=== PATIENT | female | born 1975 | race Caucasian/White ===

== ENCOUNTER 2016-12-09 12:04 | Emergency (ER) | payer MEDICAID ==
[~2016-12-09] VITALS: Ht 154.9 cm; Wt 127.5 kg
[~2016-12-09 12:04] MED LIST: CEPH-443 PO; DICY10CA60 PO; DOCU-144 PO; FER325 PO; HYDR-906 PO; IBUP400T22 PO; MEDR10TA50 PO; ONDA4TAB14 PO
[2016-12-09 12:32] VITALS: Ht 154.9 cm; Wt 127.5 kg
[2016-12-09] MEDS ORDERED: ONDANSETRON 4 MG INJ IM STA (14:34)
[2016-12-09] MEDS ORDERED: SOD CHLORIDE 0.9% 1,000 ML IV STA (14:35)
[2016-12-09] MEDS ORDERED: ONDANSETRON 4 MG INJ IV STA (14:35)
[2016-12-09] MEDS ORDERED: OXYCODONE/ACETAMINOPHEN (5/325) TAB PO ONE (15:00)
[2016-12-09 15:01] LABS: ADD SCAN DIFF NO
[2016-12-09 15:06] LABS: ADD UMIC YES; URINE BILIRUBIN (Dip) NEGATIVE (NEGATIVE); URINE BLOOD (Dip) NEGATIVE (NEGATIVE); URINE COLOR LT. YELLOW (YELLOW); URINE GLUCOSE (Dip) NEGATIVE (NEGATIVE); URINE KETONES (Dip) NEGATIVE (NEGATIVE); URINE LEUKOCYTE ESTERASE (Dip) 1+ (NEGATIVE); URINE NITRITE (Dip) NEGATIVE (NEGATIVE); URINE TOTAL PROTEIN (Dip) NEGATIVE (NEGATIVE); URINE UROBILINOGEN (Dip) 0.2 E.U./dL (0.1-1.0)
[2016-12-09 15:09] LABS: BASOPHIL # 0.1 10^3/ul (0.0-0.1); BASOPHILS % 1.2 % (0.0-2.0); EOSINOPHILS # 0.2 10^3/ul (0.0-0.5); EOSINOPHILS % 3.1 % (0.0-7.0); HEMATOCRIT 33.9 % (37.0-47.0); HEMOGLOBIN 10.8 g/dl (12.0-16.0); LYMPHOCYTES # 1.5 10^3/ul (0.8-2.9); LYMPHOCYTES % 25.1 % (15.0-51.0); MEAN CORPUSCULAR HEMOGLOBIN 27.8 pg (29.0-33.0); MEAN CORPUSCULAR HGB CONC 31.9 g/dl (32.0-37.0); MEAN CORPUSCULAR VOLUME 87.1 fl (82.0-101.0); MEAN PLATELET VOLUME 10.5 fl (7.4-10.4); MONOCYTE # 0.4 10^3/ul (0.3-0.9); MONOCYTES % 6.6 % (0.0-11.0); NEUTROPHIL # 3.9 10^3/ul (1.6-7.5); NEUTROPHILS % 63.8 % (39.0-77.0); PLATELET COUNT 319 10^3/UL (140-415); RED BLOOD COUNT 3.89 10^6/ul (4.20-5.40); RED CELL DISTRIBUTION WIDTH 15.9 % (11.5-14.5); WHITE BLOOD COUNT 6.1 10^3/ul (4.8-10.8)
[2016-12-09 15:17] LABS: POTASSIUM 3.8 mmol/L (3.5-5.1)
[2016-12-09 15:19] LABS: CREATININE 0.53 mg/dl (0.44-1.00); URINE RBCS NONE SEEN /HPF (0)
[2016-12-09 15:20] LABS: BACTERIA,URINE MODERATE; CALCIUM 8.5 mg/dl (8.4-10.2); SQUAMOUS EPITHELIAL CELL,UR MANY
[2016-12-09] MEDS ORDERED: CEFTRIAXONE 1 GM/50 ML (PMX) 50 ML IVPB ONE (15:30)
[2016-12-09] MEDS ORDERED: CEPH-443 PO (15:34)
[2016-12-09] MEDS ORDERED: IBUP-1542 PO (15:34)
--- NOTE | 2016-12-09 16:05 | ERD ---
ER Documentation Chief Complaint Date/Time DATE: 12/09/16 TIME: 15:57 Chief Complaint HEADACHE AND DIZZINESS X 3 DAYS HPI 41-year-old woman complains of 3 days of weakness, dizziness, headache. She denies loss of consciousness, no fevers or chills, no dysuria or hematuria, no back pain, no complaints of cough, no chest pain or shortness of breath, no sore throat. Patient denies recent travel or antibiotic use. ROS All systems reviewed and are negative except as per history of present illness. Medications Home Meds Active Scripts Ibuprofen* (Ibuprofen*) 600 Mg Tablet, 600 MG PO Q8 for PAIN AND/OR INFLAMMATION , #30 TAB Prov:ELISA ERVIN MD 12/09/16 Cephalexin* (Keflex*) 500 Mg Capsule, 500 MG PO TID for 7 Days, CAP Prov:ELISA ERVIN MD 12/09/16 Dicyclomine Hcl* (Bentyl*) 10 Mg Capsule, 10 MG PO QID, #30 CAP Prov:IHSAN BRITO PA-C 08/21/16 Ondansetron (Ondansetron Odt) 4 Mg Tab.rapdis, 4 MG PO Q6H Y for NAUSEA AND/OR VOMITING, #10 TAB Prov:IHSAN BRITO PA-C 08/21/16 Cephalexin* (Keflex*) 500 Mg Capsule, 500 MG PO QID for 7 Days, CAP Prov:IHSAN BRITO PA-C 08/21/16 Ibuprofen* (Motrin*) 400 Mg Tab, 400 MG PO Q6, #30 TAB Prov:JENN ROBERTSON PA-C 07/30/16 Medroxyprogesterone Acetate* (Medroxyprogesterone Acetate*) 10 Mg Tablet, 10 MG PO DAILY for 6 Days, TAB Prov:GAMBINOCARLOSA V. CASE PACKER AND SEALER 06/24/16 Hydrocodone/Acetaminophen ([place] 5-325 Tablet) 1 Each Tablet, 1 EACH PO Q6, #30 TAB Prov:GAMBINO,ILEANA V. CASE PACKER AND SEALER 06/24/16 Docusate Sodium* (Colace*) 100 Mg Capsule, 100 MG PO BID, #60 CAP Prov:GAMBINO,ILEANA V. CASE PACKER AND SEALER 06/23/16 Ferrous Sulfate* (Ferrous Sulfate*) 325 Mg Tabec, 325 MG PO TID for 30 Days, TAB Prov:GAMBINOCARLOS ROSADOA V. RUTHANN 06/23/16 Allergies Allergies: Coded Allergies: No Known Allergy (Verified , 06/21/16) PMhx/Soc None Medical and Surgical Hx: pt denies Surgical Hx History of Surgery: No Anesthesia Reaction: No Hx Neurological Disorder: No Hx Respiratory Disorders: No Hx Cardiac Disorders: No Hx Psychiatric Problems: No Hx Miscellaneous Medical Probl: Yes (anemia) Hx Alcohol Use: No Hx Substance Use: No Hx Tobacco Use: No FmHx Family History: No diabetes Physical Exam Vitals Vital Signs Date Time Temp Pulse Resp B/P Pulse Ox O2 Delivery O2 Flow Rate FiO2 12/09/16 12:32 98.7 74 19 97/50 99 Physical Exam GENERAL: Well-developed, well-nourished, well-hydrated, in no apparent distress , looks nontoxic in appearance HEENT: Moist mucous membranes, pink conjunctiva, no cervical spine tenderness or step-off deformities, no goiter, no jaundice or icterus, extraocular movements intact without pain. No submandibular induration, and no pharyngeal erythema NEURO: Alert and oriented 3, cranial nerves II through XII intact bilaterally, pupils equal round reactive to light, no focal deficits or facial asymmetry, sensation intact distally Strength 5/5 in upper and lower extremities bilaterally CARDIAC: Regular rate and rhythm, no murmurs rubs or gallops LUNGS: Clear bilaterally no wheezing crackles or stridor ABDOMEN: Soft nontender, no guarding, no rigidity, no rebound, no psoas sign no obturator sign. Normoactive bowel sounds SKIN: Warm and dry to touch, no abrasions, contusions, or hematomas, no lacerations, no ecchymosis, no target lesions, and without ulcers EXTREMITIES: No clubbing cyanosis or edema, calves are bilaterally symmetrical, no Homans sign, no popliteal cord sign. Distal pulses equal and bilateral PSYCH: Normal affect without agitation or irritability Result Diagram: 12/09/16 1450 12/09/16 1450 Results 24 hrs Laboratory Tests Test 12/09/16 14:50 Anion Gap 17 Basophils # 0.110^3/ul Basophils % 1.2% Blood Urea Nitrogen 9mg/dl Calcium Level 8.5mg/dl Carbon Dioxide Level 25mmol/L Chloride Level 102mmol/L Creatinine 0.53mg/dl Eosinophils # 0.210^3/ul Eosinophils % 3.1% Glucose Level 94mg/dl Hematocrit 33.9% Hemoglobin 10.8g/dl Lymphocytes # 1.510^3/ul Lymphocytes % 25.1% Mean Corpuscular Hemoglobin 27.8pg Mean Corpuscular Hemoglobin Concent 31.9g/dl Mean Corpuscular Volume 87.1fl Mean Platelet Volume 10.5fl Monocytes # 0.410^3/ul Monocytes % 6.6% Neutrophils # 3.910^3/ul Neutrophils % 63.8% Nucleated Red Blood Cells # 0.010^3/ul Nucleated Red Blood Cells % 0.0/100WBC Platelet Count 47167^3/UL Potassium Level 3.8mmol/L Red Blood Count 3.8910^6/ul Red Cell Distribution Width 15.9% Serum HCG, Qualitative NEGATIVE Sodium Level 140mmol/L Urine Bacteria MODERATE Urine Bilirubin NEGATIVE Urine Clarity CLOUDY Urine Color LT. YELLOW Urine Glucose NEGATIVE% Urine Hemoglobin NEGATIVE Urine Ketones NEGATIVE Urine Leukocyte Esterase 1+ Urine Microscopic RBC NONE SEEN/HPF Urine Microscopic WBC 10-25/HPF Urine Nitrite NEGATIVE Urine Specific Tyler <=1.005 Urine Squamous Epithelial Cells MANY Urine Total Protein NEGATIVE Urine Urobilinogen 0.2 E.U./dL Urine pH 5.5 White Blood Count 6.110^3/ul Current Medications Medications (Trade) Dose Ordered Sig/Calvin Route PRN Reason Start Time Stop Time Status Last Admin Dose Admin Ondansetron HCl (Zofran Inj) 4 mg ONCE STAT IM 12/09/16 14:34 12/09/16 14:37 DC Oxycodone/ Acetaminophen 1 tab 1 tab ONCE ONCE PO 12/09/16 15:00 12/09/16 15:01 DC 12/09/16 15:05 Sodium Chloride (NS) 1,000 ml @ 1,000 mls/hr Q1H STAT IV 12/09/16 14:35 12/09/16 15:34 DC 12/09/16 15:06 Ondansetron HCl 4 mg 4 mg ONCE STAT IV 12/09/16 14:35 12/09/16 14:38 DC 12/09/16 15:05 Ceftriaxone Sodium (Rocephin) 50 ml @ 100 mls/hr ONCE ONCE IVPB 12/09/16 15:30 12/09/16 15:59 Procedures/MDM IV line was established patient was placed on director of cardiac cath lab rhythm strip revealed a sinus rhythm at about 80 bpm with upright P and T waves. Patient was afebrile. I administered 1 L normal saline intravenously and Zofran 4 mg IV, and Percocet 1 tablet by mouth for pain control. CBC and electrolytes were unremarkable, urine analysis was positive for infection. I administered ceftriaxone 1 g IV for UTI. Differential diagnoses considered, included but not limited to acute coronary syndrome, pulmonary embolism, aortic dissection, abdominal aortic aneurysm, sepsis, stroke, meningitis, encephalitis, pneumonia, appendicitis, cholecystitis , bowel obstruction, pyelonephritis, nephrolithiasis, cystitis, as well as metabolic, hematologic, and electrolyte abnormalities. As well as abscess, cellulitis, fractures, and dislocations. Patient feels much better at this time, and vital signs are normal, symptoms have improved. I did give strict instructions to return to the ED if symptoms continue or worsen, patient will otherwise follow-up with primary care physician. Patient understood instructions and agreed to plan. Departure Diagnosis: Primary Impression: Headache Headache type: tension-type Headache chronicity pattern: acute headache Intractability: not intractable Qualified Code: G44.209 - Acute non intractable tension-type headache Additional Impression: Cystitis Condition: Good Patient Instructions: Self-Care for Headaches, Cystitis ELISA ERVIN MD Dec 09, 2016 16:05
[2016-12-09 16:20] VITALS: BP 148/73; PULSE 79; RESP 18; TEMP 98.2
== END 2016-12-09 16:21 | disposition home or self-care (01) ==
LOC: FTE 12:04
DX: G44.209 Tension-type headache, unspecified, not intractable (principal); N30.90 Cystitis, unspecified without hematuria
CPT/HCPCS: 36415; 80048; 81001; 84703; 85025; 96374; 96375; J0696; J2405; J7030; Z7502; Z7610; 81003

== ENCOUNTER 2017-05-29 00:01 | Inpatient (IN) | payer MEDICAID ==
[~2017-05-29] VITALS: Ht 154.9 cm; Wt 124.0 kg
[~2017-05-29 00:01] MED LIST changes: +IBUP-1542 PO
[2017-05-29] MEDS ORDERED: ONDANSETRON 4 MG INJ IV STA (00:24)
[2017-05-29] MEDS ORDERED: SOD CHLORIDE 0.9% 1,000 ML IV STA ×2 (00:24→04:18)
[2017-05-29] MEDS ORDERED: morphine 4 MG/ML VIAL IV STA ×2 (00:24→01:35)
[2017-05-29 00:52] LABS: BASOPHIL # 0.1 10^3/ul (0.0-0.1); BASOPHILS % 1.7 % (0.0-2.0); EOSINOPHILS # 0.3 10^3/ul (0.0-0.5); EOSINOPHILS % 5.4 % (0.0-7.0); HEMATOCRIT 37.3 % (37.0-47.0); HEMOGLOBIN 12.1 g/dl (12.0-16.0); LYMPHOCYTES # 1.4 10^3/ul (0.8-2.9); LYMPHOCYTES % 27.4 % (15.0-51.0); MEAN CORPUSCULAR HEMOGLOBIN 27.6 pg (29.0-33.0); MEAN CORPUSCULAR HGB CONC 32.4 g/dl (32.0-37.0); MEAN CORPUSCULAR VOLUME 85.2 fl (82.0-101.0); MEAN PLATELET VOLUME 11.5 fl (7.4-10.4); MONOCYTE # 0.5 10^3/ul (0.3-0.9); MONOCYTES % 9.1 % (0.0-11.0); PLATELET COUNT 301 10^3/UL (140-415); RED BLOOD COUNT 4.38 10^6/ul (4.20-5.40); RED CELL DISTRIBUTION WIDTH 20.1 % (11.5-14.5); WHITE BLOOD COUNT 5.2 10^3/ul (4.8-10.8)
[2017-05-29 01:06] LABS: INR 1.01; PROTIME 13.3 Sec (12.2-14.2)
[2017-05-29 01:07] LABS: PARTIAL THROMBOPLASTIN TIME 33.9 Sec (25.0-35.0)
[2017-05-29 01:09] LABS: ALBUMIN 3.9 g/dl (3.3-4.9); ALBUMIN/GLOBULIN RATIO 1.05; BILIRUBIN,INDIRECT 0.1 mg/dl (0-1.1); BILIRUBIN,TOTAL 0.1 mg/dl (0.2-1.3); CALCIUM 9.9 mg/dl (8.4-10.2); CREATININE 0.94 mg/dl (0.44-1.00); POTASSIUM 3.3 mmol/L (3.5-5.1); TOTAL PROTEIN 7.6 g/dl (6.1-8.1)
[2017-05-29 01:57] LABS: URINE BLOOD (Dip) POC 2+ (NEGATIVE)
--- NOTE | 2017-05-29 01:58 | RADRPT ---
PROCEDURE: CT abdomen and pelvis without intravenous contrast. CLINICAL INDICATION: Pain. TECHNIQUE: CT of the abdomen/pelvis was performed utilizing axial images with reconstructions in s agittal and coronal planes. The administered radiation dose is CTDI 24 mGy, DLP 1561 mGy-cm. One or more of the following dose reduction techniques were used: automated exposure control, adjustment of the mA and/or kV according to patient size and/or use of iterative reconstruction technique. COMPARISON: 08/20/2016 FINDINGS: Visualized Chest: The visualized lung bases are clear. Abdomen: The spleen, pancreas, gallbladder,and adrenal glands are unremarkable. The liver is diffusely dec reased in attenuation, compatible with hepatic steatosis. The kidneys are without hydronephrosis. No definite urinary calculi are seen. There is no evidence of bowel obstruction. The appendix is normal. No intra-abdominal free air is seen. There is no evidence of intra-abdominal adenopathy or free fluid. Pelvis: There is no evidence of pelvic adenopathy. The uterus and ovaries are without enlargement. The squaxin marcellus is mildly lobulated, likely due to some fibroids. The urinary bladder is unremarkable. There is no pelvic free fluid. Osseous structures: Unremarkable. IMPRESSION: No acute findings. Probable fibroid uterus. Hepatic steatosis. RPTAT: HIKT .Fabio Tapia MD, MD Date Time Electronically viewed and signed by .Fabio Tapia MD, on 05/29/2017 01:58 .T/
[2017-05-29] MEDS ORDERED: LIDOCAINE/MYLANTA 40 ML BTL ONE (02:46)
[2017-05-29] MEDS ORDERED: FAMOTIDINE 20 MG INJ IV STA (02:46)
[2017-05-29] MEDS ORDERED: LIDOCAINE/MYLANTA 40 ML BTL PO STA (02:46)
[2017-05-29] MEDS ORDERED: ONDANSETRON 4 MG INJ IV PRN ×2 (03:30→05:30)
[2017-05-29] MEDS ORDERED: ACETAMINOPHEN 325 MG TAB PO PRN ×2 (03:30→05:30)
--- NOTE | 2017-05-29 04:18 | ERA ---
ER Documentation Chief Complaint Date/Time DATE: 05/29/17 TIME: 04:13 Chief Complaint AP x4 days worst today. stool with blood x6 and dizziness HPI A spanish medical interpreter was used. This is a 41-year-old female history of morbid obesity who presents with multiple complaints. She describes approximately 4 days of symptoms with abdominal pain that is diffuse but worse to the epigastrium with associated fatigue. Today she notes multiple episodes of stool with blood times approximately 6. She is describing dizziness. No chest pain or shortness of breath. She denies a history of peptic ulcer disease, no hematemesis and no melena. No recent travel, sick contacts, antibiotics. ROS All systems reviewed and are negative except as per history of present illness. Medications Home Meds Discontinued Scripts Ibuprofen* (Ibuprofen*) 600 Mg Tablet, 600 MG PO Q8 for PAIN AND/OR INFLAMMATION , #30 TAB Prov:ELISA ERVIN MD 12/09/16 Cephalexin* (Keflex*) 500 Mg Capsule, 500 MG PO TID for 7 Days, CAP Prov:ELISA ERVIN MD 12/09/16 Dicyclomine Hcl* (Bentyl*) 10 Mg Capsule, 10 MG PO QID, #30 CAP Prov:IHSAN BRITO PA-C 08/21/16 Ondansetron (Ondansetron Odt) 4 Mg Tab.rapdis, 4 MG PO Q6H Y for NAUSEA AND/OR VOMITING, #10 TAB Prov:IHSAN BRITO PA-C 08/21/16 Cephalexin* (Keflex*) 500 Mg Capsule, 500 MG PO QID for 7 Days, CAP Prov:IHSAN BRITO PA-C 08/21/16 Ibuprofen* (Motrin*) 400 Mg Tab, 400 MG PO Q6, #30 TAB Prov:JENN ROBERTSON PA-C 07/30/16 Medroxyprogesterone Acetate* (Medroxyprogesterone Acetate*) 10 Mg Tablet, 10 MG PO DAILY for 6 Days, TAB Prov:GAMBINOILEANA V. HOSPITAL TELEVISION RENTAL CLERK 06/24/16 Hydrocodone/Acetaminophen ([place] 5-325 Tablet) 1 Each Tablet, 1 EACH PO Q6, #30 TAB Prov:GAMBINOILEANA V. HOSPITAL TELEVISION RENTAL CLERK 06/24/16 Docusate Sodium* (Colace*) 100 Mg Capsule, 100 MG PO BID, #60 CAP Prov:GAMBINOCARLOSA V. HOSPITAL TELEVISION RENTAL CLERK 06/23/16 Ferrous Sulfate* (Ferrous Sulfate*) 325 Mg Tabec, 325 MG PO TID for 30 Days, TAB Prov:GAMBINOILEANA V. HOSPITAL TELEVISION RENTAL CLERK 06/23/16 Allergies Allergies: Coded Allergies: No Known Allergy (Verified , 06/21/16) PMhx/Soc Medical and Surgical Hx: pt denies Surgical Hx History of Surgery: No Anesthesia Reaction: No Hx Neurological Disorder: No Hx Respiratory Disorders: No Hx Cardiac Disorders: No Hx Psychiatric Problems: No Hx Miscellaneous Medical Probl: Yes (anemia) Hx Alcohol Use: No Hx Substance Use: No Hx Tobacco Use: No Smoking Status: Never smoker FmHx Family History: No diabetes Physical Exam Vitals Vital Signs Date Time Temp Pulse Resp B/P Pulse Ox O2 Delivery O2 Flow Rate FiO2 05/29/17 03:37 59 14 97/64 97 Room Air 05/29/17 02:45 98.9 61 14 108/64 97 Room Air 05/29/17 00:48 98.3 64 16 90/38 97 Room Air 05/29/17 00:08 98.7 69 22 100/53 98 Physical Exam General: Uncomfortable head: Normocephalic, atraumatic Eyes: Pupils equally reactive, EOM intact ENT: Moist mucous membranes Neck: Supple, no lymphadenopathy Respiratory: Lungs clear bilaterally, no distress Cardiovascular: RRR, no murmurs, rubs, or gallops Abdominal: Soft, generalized diffuse abdominal tenderness without rebound or guarding, negative Valdes sign, no tenderness to McBurney's point : Chaperoned exam with blood, brown stool, no hemorrhoid MSK: No edema, no unilateral swelling, 5/5 strength Neurologic: Alert and oriented, moving all extremities, normal speech, no focal weakness, no cerebellar signs Skin: No rash Psych: Normal mood Result Diagram: 05/29/17 0020 05/29/17 0020 Results 24 hrs Laboratory Tests Test 05/29/17 00:20 05/29/17 02:03 White Blood Count 5.210^3/ul Red Blood Count 4.3810^6/ul Hemoglobin 12.1g/dl Hematocrit 37.3% Mean Corpuscular Volume 85.2fl Mean Corpuscular Hemoglobin 27.6pg Mean Corpuscular Hemoglobin Concent 32.4g/dl Red Cell Distribution Width 20.1% Platelet Count 21177^3/UL Mean Platelet Volume 11.5fl Neutrophils % 56.0% Lymphocytes % 27.4% Monocytes % 9.1% Eosinophils % 5.4% Basophils % 1.7% Nucleated Red Blood Cells % 0.0/100WBC Neutrophils # (Manual) 2.910^3/ul Lymphocytes # 1.410^3/ul Monocytes # 0.510^3/ul Eosinophils # 0.310^3/ul Basophils # 0.110^3/ul Nucleated Red Blood Cells # 0.010^3/ul Prothrombin Time 13.3Sec Prothrombin Time Ratio 1.0 INR International Normalized Ratio 1.01 Activated Partial Thromboplast Time 33.9Sec Sodium Level 138mmol/L Potassium Level 3.3mmol/L Chloride Level 99mmol/L Carbon Dioxide Level 30mmol/L Anion Gap 12 Blood Urea Nitrogen 12mg/dl Creatinine 0.94mg/dl Glucose Level 113mg/dl Calcium Level 9.9mg/dl Total Bilirubin 0.1mg/dl Direct Bilirubin 0.00mg/dl Indirect Bilirubin 0.1mg/dl Aspartate Amino Transf (AST/SGOT) 141IU/L Alanine Aminotransferase (ALT/SGPT) 103IU/L Alkaline Phosphatase 87IU/L Total Protein 7.6g/dl Albumin 3.9g/dl Globulin 3.70g/dl Albumin/Globulin Ratio 1.05 Lipase 179U/L Serum HCG, Qualitative NEGATIVE Bedside Urine pH (LAB) 6.0 Bedside Urine Protein (LAB) Negative Bedside Urine Glucose (UA) Negative Bedside Urine Ketones (LAB) Negative Bedside Urine Blood 2+ Bedside Urine Nitrite (LAB) Negative Bedside Urine Leukocyte Esterase (L Negative Current Medications Medications (Trade) Dose Ordered Sig/Calvin Route PRN Reason Start Time Stop Time Status Last Admin Dose Admin Sodium Chloride (NS) 1,000 ml @ 1,000 mls/hr Q1H STAT IV 05/29/17 00:24 05/29/17 01:23 DC 05/29/17 00:30 Morphine Sulfate (morphine) 4 mg ONCE STAT IV 05/29/17 00:24 05/29/17 00:25 DC 05/29/17 00:30 Ondansetron HCl (Zofran Inj) 4 mg ONCE STAT IV 05/29/17 00:24 05/29/17 00:25 DC 05/29/17 00:30 Morphine Sulfate (morphine) 4 mg ONCE STAT IV 05/29/17 01:35 05/29/17 01:36 DC 05/29/17 02:18 Miscellaneous Medication (Gi Cocktail (2)) 40 ml STK-MED ONCE .ROUTE 05/29/17 02:46 05/29/17 02:47 DC Famotidine (Pepcid Iv) 20 mg ONCE STAT IV 05/29/17 02:46 05/29/17 02:47 DC 05/29/17 02:53 Miscellaneous Medication (Gi Cocktail (2)) 40 ml ONCE STAT PO 05/29/17 02:46 05/29/17 02:47 DC 05/29/17 02:53 Ondansetron HCl (Zofran Inj) 4 mg BRIDGE ORDER PRN IV NAUSEA AND/OR VOMITING 05/29/17 03:30 05/30/17 03:29 Acetaminophen (Tylenol Tab) 650 mg ER BRIDGE PRN PO MILD PAIN/FEVER 05/29/17 03:30 05/30/17 03:29 Procedures/MDM EKG, MONITORS, & DIAGNOSTIC IMAGING: CT abdomen and pelvis: IMPRESSION: No acute findings. Probable fibroid uterus. Hepatic steatosis. RPTAT: HIKT EKG: I reviewed and interpreted a 12-lead EKG. Rhythm: Normal sinus rhythm Ectopy: None Intervals: No abnormalities ST segments: No elevations or depressions T waves: No contiguous inversions LAB INTERPRETATION: Hemoglobin stable, normal BUN to creatinine ratio, nonspecific transaminitis, normal bilirubin, normal lipase, negative hCG MEDICAL DECISION MAKING: The patient presents with multiple complaints including fatigue, abdominal pain and bloody stools. Her presentation is possibly consistent with subacute lower GI hemorrhage likely secondary to diverticular disease. Very low clinical concern for upper GI hemorrhage such as peptic ulcer disease or brisk upper GI bleed. ER COURSE: The patient is hemodynamically stable. Otherwise she is well-appearing in the emergency room but does request repeat dosing of pain medication. She is somewhat sleepy. I am concerned about over medicating this patient. The patient's laboratory testing and CT imaging is unrevealing. Hemoglobin is stable. Her BUN to creatinine ratio does not suggest upper GI hemorrhage. The patient's abdominal pain is likely secondary to lower GI hemorrhage. Given the persistence of symptoms, poor outpatient follow-up I believe inpatient hospitalization would most appropriate with nonemergent GI consultation for endoscopy and colonoscopy. I kept the patient and/or family informed of laboratory and diagnostic imaging results throughout the emergency room course. DISPOSITION PLAN: [facility] admission for management of lower GI bleed CONSULTATION: Accepting care team and consultations: I discussed the current laboratory data, diagnostic imaging and emergency care provided. Admitting team: Dr. Wu Admitting team indication: Insurance directed Of note, while awaiting for bed the patient's blood pressure did drop, she was somewhat sleepy. She was aroused, set up and given another liter of saline with blood pressure response. Consider medication related. Low concern for active hemorrhage. Repeat hemoglobin in the morning would be reasonable. Departure Diagnosis: Primary Impression: Morbid obesity Additional Impressions: Lower GI bleed Generalized abdominal pain Condition: Stable CHAPITO BARRY MD May 29, 2017 04:18
[2017-05-29 04:49] LABS: ADD UMIC YES; UR ASCORBIC ACID NEGATIVE (NEGATIVE); UR BACTERIA FEW /HPF (NONE SEEN); UR BILIRUBIN (Dip) NEGATIVE (NEGATIVE); UR BLOOD (Dip) 3+ mg/dL (NEGATIVE); UR CLARITY CLEAR (CLEAR); UR COLOR STRAW (YELLOW); UR GLUCOSE (Dip) NEGATIVE (NEGATIVE); UR KETONES (Dip) NEGATIVE (NEGATIVE); UR LEUKOCYTE ESTERASE (Dip) NEGATIVE Leu/ul (NEGATIVE); UR NITRITE (Dip) NEGATIVE (NEGATIVE); UR RBC 8 /HPF (0-5); UR SPECIFIC GRAVITY (Dip) 1.009 (1.003-1.030); UR SQUAMOUS EPITHELIAL CELL FEW /HPF (FEW); UR TOTAL PROTEIN (Dip) NEGATIVE (NEGATIVE); UR UROBILINOGEN (Dip) NEGATIVE (NEGATIVE)
[2017-05-29] MEDS: HYDROmorphONE 1 MG/ML SYG IV PRN ×4 (05:15→18:27)
[2017-05-29] MEDS: PANTOPRAZOLE 40 MG INJ IV SCH ×2 (05:15→18:31)
[2017-05-29] MEDS ORDERED: NACL 0.9% 3 ML SYG IV SCH (05:30)
[2017-05-29 05:35] VITALS: PULSE 104; TEMP 97.7
--- NOTE | 2017-05-29 05:42 | HP ---
Date/Time of Note Date/Time of Note DATE: 05/29/17 TIME: 05:33 Assessment/Plan VTE Prophylaxis VTE Prophylaxis Intervention: SCD's Assessment/Plan Chief Complaint/Hosp Course This is a 41-year-old female being admitted to the telemetry floor for: #1 GI bleed: Upper and/or lower GI bleed. Patient has symptoms of epigastric pain however she demonstrates bright red blood per rectum which either could be fast transition of bleeding versus two different etiologies. CT scan did not show any acute abnormalities aside from fibroids and hepatic steatosis. At the current time we will keep the patient n.p.o. Protonix IV twice daily. Normal saline fluid for hydration. IV Dilaudid for pain control. Will consult GI for further evaluation likely with endoscopy/colonoscopy. H&H every 6 hours. Will also check cardiac troponins as patient is complaining of epigastric pain to assess for any possible underlying cardiac etiology, EKG was sinus rhythm with no acute ST or T-wave abnormalities noted. #2 anemia: Patient denies any previous episodes of GI bleeding, she does report that she has had fibroids before however at this time does not report any vaginal or urine or bleeding. Will check iron studies #3 hyperlipidemia: Currently not on any medications will check a lipid panel #4 uterine fibroid: On CAT scan there was evidence of a probable fibroid. At this time patient denies any vaginal bleeding the urinal bleeding. #5 morbid obesity: We will check a hemoglobin A1c, thyroid panel, lipid panel #6 DVT and GI prophylaxis,: SCDs, Protonix Further treatment strategy will be implemented as per the clinical course Problems: HPI/ROS Admit Date/Time Admit Date/Time Hx of Present Illness cc: rectal bleeding This is a 41-year-old female history of morbid obesity who presents with abdominal pain and bright red blood per rectum She describes approximately 4 days of symptoms with abdominal pain that is diffuse but worse to the epigastrium with associated fatigue. She reports that she does have symptoms of heart burn at times. Today she notes multiple episodes of stool with blood times approximately 6. She is describing dizziness. No chest pain or shortness of breath. Denies any vomitting. She denies any vaginal bleeding or bleeding during urination. allergies: nkda meds: see mar ROS Const: As per HPI Eyes : No pain discharge or redness or change in visual acuity ENT: No pain, sore throat, congestion, congestion, dysphagia or discharge Respiratory: No shortness of breath, cough, sputum, wheezing, or pleuritic pain Cardiovascular: No chest pain, palpitation, PND, or edema GI : As per HPI Genitourinary: No dysuria, hematuria, flank pain , discharge or CVA tenderness Musculoskeletal: No joint pain, back pain, neck pain, restricted range of motion in neck or joints Skin: No rash, bruising or hives Neuro: No headache, dizziness, syncope, seizure, focal weakness Endocrine: No polyuria, polydipsia, temperature intolerance Psych: No hallucination, depression, anxiety or suicidal ideation PMH/Family/Social Past Medical History Fibroids, anemia, hyperlipidemia Past Surgical History Past Surgical Hx: no surgical history Family History Significant Family History: no pertinent family hx Social History Alcohol Use: none Smoking Status: Never smoker Drug Use: none Exam/Review of Systems Vital Signs Vitals Vital Signs Date Time Temp Pulse Resp B/P Pulse Ox O2 Delivery O2 Flow Rate FiO2 05/29/17 05:18 98.3 84 16 100/67 98 Room Air Exam Exam General: Patient is a morbidly obese female lying in bed in moderate distress from pain HEENT: Atraumatic, normocephalic. The pupils are equal, round and reactive. Extraocular motor are intact Neck: Supple with full range of motion. No rigidity or meningismus Chest: Nontender Lungs: Clear to auscultation bilaterally no crackles rales or wheezing Heart: Normal S1-S2, Regular rhythm and rate. Abdomen: Soft, tenderness to palpation diffusely of the abdomen more so in the epigastric region, normal bowel sounds Extremities: Normal to inspection, no edema no cyanosis Neurologic: Normal mental status, speech normal, cranial nerves II through XII are intact, motor and sensory are intact, no focal weakness Additional Comments PROCEDURE: CT abdomen and pelvis without intravenous contrast. CLINICAL INDICATION: Pain. TECHNIQUE: CT of the abdomen/pelvis was performed utilizing axial images with reconstructions in sagittal and coronal planes. The administered radiation dose is CTDI 24 mGy, DLP 1561 mGy-cm. One or more of the following dose reduction techniques were used: automated exposure control, adjustment of the mA and/or kV according to patient size and/or use of iterative reconstruction technique. COMPARISON: 08/20/2016 FINDINGS: Visualized Chest: The visualized lung bases are clear. Abdomen: The spleen, pancreas, gallbladder,and adrenal glands are unremarkable. The liver is diffusely decreased in attenuation, compatible with hepatic steatosis. The kidneys are without hydronephrosis. No definite urinary calculi are seen. There is no evidence of bowel obstruction. The appendix is normal. No intra- abdominal free air is seen. There is no evidence of intra-abdominal adenopathy or free fluid. Pelvis: There is no evidence of pelvic adenopathy. The uterus and ovaries are without enlargement. The uterus is mildly lobulated, likely due to some fibroids. The urinary bladder is unremarkable. There is no pelvic free fluid. Osseous structures: Unremarkable. IMPRESSION: No acute findings. Probable fibroid uterus. Hepatic steatosis. RPTAT: HIKT .Fabio Tapia MD, Date Time Electronically viewed and signed by .Fabio Tapia MD, MD on 05/29/2017 01:58 .T/ CC: CHAPITO BARRY MD EKG: Rhythm: Normal sinus rhythm Ectopy: None Intervals: No abnormalities ST segments: No elevations or depressions T waves: No contiguous inversions As per ED physician documentation Labs Result Diagram: 05/29/17 0020 05/29/17 0020 Medications Medications Current Medications Pantoprazole (Protonix Iv) 40 mg BID@06,18 IV Last administered on 05/29/17 05: 15; Admin Dose 40 MG; Start 05/29/17 at 06:00 Hydromorphone HCl 1 mg 1 mg Q4H PRN IV pain Last administered on 05/29/17 05:15 ; Admin Dose 1 MG; Start 05/29/17 at 05:00 Sodium Chloride (NS) 1,000 ml @ 70 mls/hr [id number] IV ; Start 05/29/17 at 05:21 Ondansetron HCl (Zofran Inj) 4 mg Q6H PRN IV NAUSEA AND/OR VOMITING; Start 05/29 at 05:30 Acetaminophen (Tylenol Tab) 650 mg Q6H PRN PO PAIN LEVEL 1-3 OR FEVER; Start at 05:30 JODI LI May 29, 2017 05:42
[2017-05-29] MEDS: SOD CHLORIDE 0.9% 1,000 ML IV SCH ×2 (06:05→21:20)
[2017-05-29 08:27] VITALS: BP 109/63; RESP 18
[2017-05-29 09:56] VITALS: Ht 154.9 cm; Wt 124.0 kg
[2017-05-29 10:23] LABS: BASOPHIL # 0.1 10^3/ul (0.0-0.1); BASOPHILS % 1.9 % (0.0-2.0); EOSINOPHILS # 0.2 10^3/ul (0.0-0.5); EOSINOPHILS % 6.4 % (0.0-7.0); HEMATOCRIT 36.1 % (37.0-47.0); LYMPHOCYTES # 1.1 10^3/ul (0.8-2.9); LYMPHOCYTES % 29.3 % (15.0-51.0); MEAN CORPUSCULAR HEMOGLOBIN 26.6 pg (29.0-33.0); MEAN CORPUSCULAR HGB CONC 30.5 g/dl (32.0-37.0); MEAN CORPUSCULAR VOLUME 87.2 fl (82.0-101.0); MEAN PLATELET VOLUME 11.2 fl (7.4-10.4); MONOCYTE # 0.3 10^3/ul (0.3-0.9); MONOCYTES % 8.5 % (0.0-11.0); NEUTROPHILS % 53.6 % (39.0-77.0); PLATELET COUNT 252 10^3/UL (140-415); RED BLOOD COUNT 4.14 10^6/ul (4.20-5.40); RED CELL DISTRIBUTION WIDTH 20.6 % (11.5-14.5); WHITE BLOOD COUNT 3.8 10^3/ul (4.8-10.8)
[2017-05-29 10:41] LABS: CREATINE KINASE 38 IU/L (23-200)
[2017-05-29 10:49] LABS: CHOL/HDL RATIO 7.2 RATIO
[2017-05-29 10:54] LABS: CK-MB 0.23 ng/ml (0.0-2.4)
[2017-05-29 10:58] LABS: TROPONIN-I < 0.012 ng/ml (0.00-0.12)
[2017-05-29 11:13] LABS: IRON 41 ug/dl (35-150)
[2017-05-29 11:14] LABS: THYROID STIMULATING HORMONE 2.93 MIU/L (0.465-4.680)
[2017-05-29 11:22] LABS: TOTAL IRON BINDING CAPACITY 359 ug/dl (241-421)
[2017-05-29 14:19] VITALS: BP 107/53; RESP 18
[2017-05-29 17:35] LABS: HEMOGLOBIN 11.1 g/dl (12.0-16.0)
[2017-05-29 17:56] LABS: CREATINE KINASE 38 IU/L (23-200)
[2017-05-29 18:10] LABS: CK-MB < 0.22 ng/ml (0.0-2.4); TROPONIN-I < 0.012 ng/ml (0.00-0.12)
[2017-05-29] MEDS ORDERED: BARIUM SULF 2% 450 ML BTL (BERRY SMOOTHIE) PO ONE (19:30)
--- NOTE | 2017-05-29 19:34 | CONS ---
Date/Time of Note Date/Time of Note DATE: 05/29/17 TIME: 19:25 Assessment/Plan Assessment/Plan Additional Assessment/Plan Assessment: * Diffuse abdominal pain etiology unclear * Minor hematochezia of questionable clinical significance * Morbid obesity * Abnormal liver function tests * Rule out fatty liver/Hawkins Plan: * CT abdomen with oral and IV contrast * Repeat amylase and lipase, liver panel * Clear liquid diet * Further recommendation will depend on patient's clinical course and findings Consultation Date/Type/Reason Admit Date/Time Date of Consultation: May 29, 2017 Type of Consultation: GI Hx of Present Illness 41-year-old morbidly obese female complaining of diffuse severe abdominal pain. The patient also reports episodes of small tablespoon-sized episodes of hematemesis. Initial evaluation with CT showed no significant abnormalities. Lipase is within normal limits. Liver function tests are slightly elevated probably representing fatty liver. The patient has diffuse abdominal pain that has not improved upon observation. Her initial CT abdomen with noncontrast. At this point I would recommend a repeat CT with oral and IV contrast. More detailed evaluation. Constitutional: improved, no complaints Eyes: no complaints ENT: no complaints Respiratory: no complaints Cardiovascular: no complaints Gastrointestinal: other Genitourinary: no complaints Musculoskeletal: no complaints Skin: no complaints Neurologic: no complaints Endocrine: no complaints Lymphatic: no complaints Psychological: nl mood/affect, no complaints Immunologic: no complaints Past Medical History Morbid obesity Medical History: no pertinent history Past Surgical History Past Surgical Hx: no surgical history Family History Significant Family History: no pertinent family hx Social History Alcohol Use: none Smoking Status: Never smoker Drug Use: none Exam/Review of Systems Vital Signs Vitals Vital Signs Date Time Temp Pulse Resp B/P Pulse Ox O2 Delivery O2 Flow Rate FiO2 05/29/17 14:19 98.1 67 18 107/53 94 05/29/17 05:35 Room Air 2.0 Exam PHYSICAL EXAMINATION: GENERAL: Well developed, well nourished, moderately obese, alert & oriented x 3 , in no acute distress SKIN: No lesions, no stigmata chronic liver disease, no evidence of bleeding diathesis LYMPHATIC: No palpable lymphadenopathy. HEAD: Normocephalic, atraumatic, no tenderness. EYES: Pupils equal reactive to light and accommodation, full extraocular movements, sclera clear, non-icteric, no discharge. EARS/NOSE AND THROAT: Ears normal, nose normal, oropharynx normal, oral membranes well hydrated without lesions. NECK: Supple, no masses, thyroid normal, JVP within normal limits, carotids normal without bruits. CHEST: Inspection within normal limits, breasts grossly normal. CARDIOVASCULAR: Heart: Regular rate and rhythm, no murmurs, gallops or rubs. Peripheral pulses present within normal limits, no cyanosis, clubbing or edemas. No pulsatile abdominal mass RESPIRATORY: Lungs clear to auscultation and percussion, no wheezing, no rubs GASTROINTESTINAL AND LIVER: Abdomen: Soft, moderate diffuse tenderness, moderately distended, no hernias, no masses, no organomegaly, no ascites, no guarding, no rebound tenderness, normoactive bowel sounds. Rectal: Deferred. GENITOURINARY: [Female genitalia within normal limits.] MUSCULO-SKELETAL: Gait and station within normal limits, range of motion adequate. Results Result Diagram: 05/29/17 1636 05/29/17 0020 Results 24 hrs Laboratory Tests Test 05/29/17 00:20 05/29/17 01:55 05/29/17 02:03 05/29/17 10:03 White Blood Count 5.2 3.8 #L Red Blood Count 4.38 4.14 L Hemoglobin 12.1 11.0 L Hematocrit 37.3 36.1 L Mean Corpuscular Volume 85.2 87.2 Mean Corpuscular Hemoglobin 27.6 L 26.6 L Mean Corpuscular Hemoglobin Concent 32.4 30.5 L Red Cell Distribution Width 20.1 #H 20.6 H Platelet Count 301 252 Mean Platelet Volume 11.5 H 11.2 H Neutrophils % 56.0 53.6 Lymphocytes % 27.4 29.3 Monocytes % 9.1 8.5 Eosinophils % 5.4 6.4 Basophils % 1.7 1.9 Nucleated Red Blood Cells % 0.0 0.0 Neutrophils # (Manual) 2.9 2.0 Lymphocytes # 1.4 1.1 Monocytes # 0.5 0.3 Eosinophils # 0.3 0.2 Basophils # 0.1 0.1 Nucleated Red Blood Cells # 0.0 0.0 Prothrombin Time 13.3 Prothrombin Time Ratio 1.0 INR International Normalized Ratio 1.01 Activated Partial Thromboplast Time 33.9 Sodium Level 138 Potassium Level 3.3 L Chloride Level 99 Carbon Dioxide Level 30 Anion Gap 12 Blood Urea Nitrogen 12 Creatinine 0.94 Glucose Level 113 Calcium Level 9.9 Total Bilirubin 0.1 L Direct Bilirubin 0.00 Indirect Bilirubin 0.1 Aspartate Amino Transf (AST/SGOT) 141 H Alanine Aminotransferase (ALT/SGPT) 103 H Alkaline Phosphatase 87 Total Protein 7.6 Albumin 3.9 Globulin 3.70 H Albumin/Globulin Ratio 1.05 Lipase 179 Serum HCG, Qualitative NEGATIVE Urine Color STRAW Urine Clarity CLEAR Urine pH 6.0 Urine Specific [place] 1.009 Urine Ketones NEGATIVE Urine Nitrite NEGATIVE Urine Bilirubin NEGATIVE Urine Urobilinogen NEGATIVE Urine Leukocyte Esterase NEGATIVE Urine Microscopic RBC 8 H Urine Microscopic WBC 1 Urine Squamous Epithelial Cells FEW Urine Bacteria FEW A Urine Hemoglobin 3+ H Urine Glucose NEGATIVE Urine Total Protein NEGATIVE Bedside Urine pH (LAB) 6.0 Bedside Urine Protein (LAB) Negative Bedside Urine Glucose (UA) Negative Bedside Urine Ketones (LAB) Negative Bedside Urine Blood 2+ H Bedside Urine Nitrite (LAB) Negative Bedside Urine Leukocyte Esterase (L Negative Hemoglobin A1c 4.9 Iron Level 41 Total Iron Binding Capacity 359 Percent Iron Saturation 11 L Creatine Kinase 38 Creatine Kinase Index 0.6 Creatinine Kinase MB (Mass) 0.23 Troponin I < 0.012 Triglycerides Level 157 H Cholesterol Level 202 H LDL Cholesterol, Calculated 143 HDL Cholesterol 28 L Cholesterol/HDL Ratio 7.2 Thyroid Stimulating Hormone (TSH) 2.930 Test 05/29/17 16:36 Hemoglobin 11.1 L Hematocrit 36.0 L Creatine Kinase 38 Creatine Kinase Index 0.6 Creatinine Kinase MB (Mass) < 0.22 Troponin I < 0.012 Medications Medications Current Medications Pantoprazole (Protonix Iv) 40 mg BID@06,18 IV Last administered on 05/29/17 18: 31; Admin Dose 40 MG; Start 05/29/17 at 06:00 Hydromorphone HCl 1 mg 1 mg Q4H PRN IV pain Last administered on 05/29/17 18:27 ; Admin Dose 1 MG; Start 05/29/17 at 05:00 Sodium Chloride (NS) 1,000 ml @ 70 mls/hr [id number] IV Last administered on 06:05; Admin Dose 70 MLS/HR; Start 05/29/17 at 05:21 Ondansetron HCl (Zofran Inj) 4 mg Q6H PRN IV NAUSEA AND/OR VOMITING; Start 05/29 at 05:30 Acetaminophen (Tylenol Tab) 650 mg Q6H PRN PO PAIN LEVEL 1-3 OR FEVER; Start at 05:30 TAHIR DIAZ MD May 29, 2017 19:34
[2017-05-29 20:35] VITALS: BP 106/52; RESP 18
[2017-05-30 01:05] LABS: HEMOGLOBIN 11.2 g/dl (12.0-16.0)
[2017-05-30 01:26] VITALS: BP 96/50; RESP 18
[2017-05-30] MEDS: HYDROmorphONE 1 MG/ML SYG IV PRN (03:04)
[2017-05-30] MEDS: PANTOPRAZOLE 40 MG INJ IV SCH (05:42)
[2017-05-30 06:50] LABS: ALBUMIN 3.3 g/dl (3.3-4.9); BILIRUBIN,INDIRECT 0.1 mg/dl (0-1.1); BILIRUBIN,TOTAL 0.1 mg/dl (0.2-1.3); TOTAL PROTEIN 6.5 g/dl (6.1-8.1)
[2017-05-30 07:01] LABS: AMYLASE 45 U/L (11-123)
[2017-05-30 07:37] VITALS: BP 105/52; RESP 18
[2017-05-30] MEDS: SOD CHLORIDE 0.9% 1,000 ML IV SCH (09:13)
--- NOTE | 2017-05-30 10:42 | PN ---
Date/Time of Note Date/Time of Note DATE: 05/30/17 TIME: 10:39 Assessment/Plan VTE Prophylaxis VTE Prophylaxis Intervention: SCD's Lines/Catheters IV Catheter Type (from Nrs): Peripheral IV Assessment/Plan Assessment/Plan Assessment: * Diffuse abdominal pain etiology unclear * Minor hematochezia of questionable clinical significance * Morbid obesity * Abnormal liver function tests * Rule out fatty liver/Hawkins Plan: * CT abdomen with oral and IV contrast * Repeat amylase and lipase, liver panel * Clear liquid diet * case discussed with Dr Zheng * Further recommendation will depend on patient's clinical course and findings Subjective 24 Hr Interval Summary Free Text/Dictation * Course reviewed with RN * Patient seen and examined * No lower gi bleed * No untoward events overnight * Awaiting CT abdomen with contrast Exam/Review of Systems Vital Signs Vitals Vital Signs Date Time Temp Pulse Resp B/P Pulse Ox O2 Delivery O2 Flow Rate FiO2 05/30/17 07:37 98.3 59 18 105/52 96 05/29/17 05:35 Room Air 2.0 Intake and Output 05/29/17 05/29/17 05/30/17 15:00 23:00 07:00 Intake Total 750 ml 960 ml Output Total 300 ml 2 ml Balance 450 ml 958 ml Exam Constitutional: alert Head: atraumatic, normocephalic Neck: supple Respiratory: clear to auscultation, normal air movement Cardiovascular: nl pulses, regular rate and rhythm Gastrointestinal: nl liver, spleen, non-tender, soft Musculoskeletal: nl extremities to inspection, nl gait and stance Extremities: normal pulses Skin: nl turgor, No rash or lesions Results Result Diagram: 05/30/17 0050 05/29/17 0020 Results 24 hrs Laboratory Tests Test 05/29/17 16:36 05/30/17 00:50 05/30/17 05:09 05/30/17 05:10 Hemoglobin 11.1 L 11.2 L Hematocrit 36.0 L 36.0 L Creatine Kinase 38 Creatine Kinase Index 0.6 Creatinine Kinase MB (Mass) < 0.22 Troponin I < 0.012 Magnesium Level 2.1 Amylase Level 45 Lipase 86 Total Bilirubin 0.1 L Direct Bilirubin 0.00 Indirect Bilirubin 0.1 Aspartate Amino Transf (AST/SGOT) 89 H Alanine Aminotransferase (ALT/SGPT) 88 H Alkaline Phosphatase 70 Total Protein 6.5 # Albumin 3.3 Medications Medications Current Medications Pantoprazole (Protonix Iv) 40 mg BID@06,18 IV Last administered on 05/30/17 05: 42; Admin Dose 40 MG; Start 05/29/17 at 06:00 Hydromorphone HCl 1 mg 1 mg Q4H PRN IV pain Last administered on 05/30/17 03:04 ; Admin Dose 1 MG; Start 05/29/17 at 05:00 Sodium Chloride (NS) 1,000 ml @ 70 mls/hr [id number] IV Last administered on 21:20; Admin Dose 70 MLS/HR; Start 05/29/17 at 05:21 Ondansetron HCl (Zofran Inj) 4 mg Q6H PRN IV NAUSEA AND/OR VOMITING; Start 05/29 at 05:30 Acetaminophen (Tylenol Tab) 650 mg Q6H PRN PO PAIN LEVEL 1-3 OR FEVER; Start at 05:30 EULALIO STOVALL NP May 30, 2017 10:42
[2017-05-30] MEDS ORDERED: SOD CHLORIDE 0.9% 100 ML ONE (11:13)
[2017-05-30] MEDS ORDERED: IOHEXOL 300MG/ML 150 ML BTL ONE (11:13)
[2017-05-30 14:34] VITALS: BP 108/52; RESP 18
--- NOTE | 2017-05-30 14:36 | RADRPT ---
PROCEDURE: CT Abdomen and Pelvis with and without contrast. CLINICAL INDICATION: Abdominal pain. TECHNIQUE: CT scan of the abdomen and pelvis with and without contrast was performed on a multidet flip high-resolution CT scanner. The patient was scanned both before and following the uncomplicat ed intravenous administration of 100 cc of Omnipaque 300. Coronal and sagittal reformatted images w ere obtained from the axial source images. Images were reviewed on a high-resolution PACS workstatio n. The total exam CTDI equals 23.74 mGy and the total exam DLP equals 2812 mGy-cm. One or more of the following dose reduction techniques were used: - Automated exposure control. - Adjustment of the mA and/or kV according to patient size. - Use of iterative reconstruction technique. COMPARISON: 05/29/2017 FINDINGS: CT abdomen: The lung bases are clear. The heart size is normal, without pericardial thickening or effusion. Th e liver is normal in size and decreased indensity without focal mass or intrahepatic biliary dilatat ion. The spleen is normal in size and homogeneous in density. The stomach is partially collapsed, but is grossly unremarkable. The pancreas as visualized is normal. The gallbladder and biliary mercedes e are unremarkable and there is no evidence for biliary dilatation. The adrenal glands are symmetri c and normal. The kidneys are symmetrically unremarkable as well. No renal calculus or obstructive uropathy or mass lesion is seen. The aorta is of normal caliber. Aortic vascular calcifications are present. There is no retroperit garg lymphadenopathy. The natividad hepatis region is clear. The bowel and mesentery, as visualized, are equally unremarkable. CT pelvis: The small bowel loops situated within the pelvis are unremarkable. The uterus is heterogeneous with several masses, consistent with fibroids. The pelvic sidewalls and inguinal regions are clear. Th e sigmoid colon and rectum are unremarkable. No mass or lymphadenopathy is seen. There is no free fluid. No acute inflammation is identified at this time. The surrounding osseous structures are unremarkable. No osteolytic or osteoblastic lesion is detect ed. IMPRESSION: 1. No acute findings in the abdomen and pelvis. 2. No mass, lymphadenopathy, or focal acute inflammatory process. 3. Hepatic steatosis. 4. Heterogeneous and likely myomatous uterus. Pelvic ultrasound can better dilineate the fibroids. RPTAT: HRC Thelma Cochran, Physician Date Time Electronically viewed and signed by Thelma Cochran, Physician on 05/30/2017 14:36 /
--- NOTE | 2017-05-30 16:17 | PDOCDIS ---
Discharge Instructions DIAGNOSIS Discharge Diagnosis Gastroenteritis CONDITION Patient Condition: Good HOME CARE INSTRUCTIONS: Diet Instructions: Reduced Calorie FOLLOW UP/APPOINTMENTS Follow-up Plan Follow up in clinic with Dr Zheng from Gastroenterology You should see your primary care provider Please return to the hospital if you have further bleeding or develop any other concerning symptoms HELEN CHILD MD May 30, 2017 16:17
--- NOTE | 2017-05-30 16:24 | DS ---
Date/Time of Note Date/Time of Note DATE: 05/30/17 TIME: 16:21 Discharge Summary Admission/Discharge Info Admit Date/Time May 29, 2017 at 03:16 Discharge Date/Time Discharge Diagnosis Gastroenteritis Patient Condition: Good Hx of Present Illness cc: rectal bleeding This is a 41-year-old female history of morbid obesity who presents with abdominal pain and bright red blood per rectum She describes approximately 4 days of symptoms with abdominal pain that is diffuse but worse to the epigastrium with associated fatigue. She reports that she does have symptoms of heart burn at times. Today she notes multiple episodes of stool with blood times approximately 6. She is describing dizziness. No chest pain or shortness of breath. Denies any vomitting. She denies any vaginal bleeding or bleeding during urination. allergies: nkda meds: see mar Hospital Course 41-year-old morbidly obese female complaining of diffuse severe abdominal pain. The patient also reports episodes of small tablespoon-sized episodes of hematemesis. Initial evaluation with CT showed no significant abnormalities. Lipase is within normal limits. Liver function tests are slightly elevated probably representing fatty liver. The patient has diffuse abdominal pain that improved upon observation. Her initial CT abdomen with noncontrast was unremarkable for acute pathology. This was repeated wtih contrast and no concerning acute pathology was found. Labs were notable for transaminitis which is chronic and secodnary to hepatic steatosis. Her H/H was stable. Seen by GI withotu recommendation for inapatinet endoscopy The patient likely has a viral gastroenteritis. She was encoaurged to follow up in clinic and to discuss endoscoyp with Dr Zheng in clinic or with her primary care provider. Home Meds Discontinued Scripts Ibuprofen* (Ibuprofen*) 600 Mg Tablet, 600 MG PO Q8 for PAIN AND/OR INFLAMMATION , #30 TAB Prov:ELISA ERVIN MD 12/09/16 Cephalexin* (Keflex*) 500 Mg Capsule, 500 MG PO TID for 7 Days, CAP Prov:ELISA ERVIN MD 12/09/16 Dicyclomine Hcl* (Bentyl*) 10 Mg Capsule, 10 MG PO QID, #30 CAP Prov:IHSAN BRITO PA-C 08/21/16 Ondansetron (Ondansetron Odt) 4 Mg Tab.rapdis, 4 MG PO Q6H Y for NAUSEA AND/OR VOMITING, #10 TAB Prov:IHSAN BRITO PA-C 08/21/16 Cephalexin* (Keflex*) 500 Mg Capsule, 500 MG PO QID for 7 Days, CAP Prov:IHSAN BRITO PA-C 08/21/16 Ibuprofen* (Motrin*) 400 Mg Tab, 400 MG PO Q6, #30 TAB Prov:JENN ROBERTSON PA-C 07/30/16 Medroxyprogesterone Acetate* (Medroxyprogesterone Acetate*) 10 Mg Tablet, 10 MG PO DAILY for 6 Days, TAB Prov:GAMBINOCARLOSA V. MECHANIC WELDER 06/24/16 Hydrocodone/Acetaminophen ([place] 5-325 Tablet) 1 Each Tablet, 1 EACH PO Q6, #30 TAB Prov:ILEANA GAMBINO V. MECHANIC WELDER 06/24/16 Docusate Sodium* (Colace*) 100 Mg Capsule, 100 MG PO BID, #60 CAP Prov:GAMBINO,ILEANA V. MECHANIC WELDER 06/23/16 Ferrous Sulfate* (Ferrous Sulfate*) 325 Mg Tabec, 325 MG PO TID for 30 Days, TAB Prov:GAMBINOCARLOSA V. MECHANIC WELDER 06/23/16 Primary Care Provider Care Physician No Primary Pending Labs Laboratory Tests Test 05/29/17 16:36 05/30/17 00:50 05/30/17 05:09 05/30/17 05:10 Hemoglobin 11.1g/dl (12.0-16.0) 11.2g/dl (12.0-16.0) Hematocrit 36.0% (37.0-47.0) 36.0% (37.0-47.0) Creatine Kinase 38IU/L (23-200) Creatine Kinase Index 0.6 Creatinine Kinase MB (Mass) < 0.22ng/ml (0.0-2.4) Troponin I < 0.012ng/ml (0.00-0.12) Magnesium Level 2.1mg/dl (1.7-2.5) Ferritin 37.7ng/ml (6.2-137.0) Amylase Level 45U/L (11-123) Lipase 86U/L (23-300) Total Bilirubin 0.1mg/dl (0.2-1.3) Direct Bilirubin 0.00mg/dl (0.00-0.20) Indirect Bilirubin 0.1mg/dl (0-1.1) Aspartate Amino Transf (AST/SGOT) 89IU/L (15-46) Alanine Aminotransferase (ALT/SGPT) 88IU/L (13-69) Alkaline Phosphatase 70IU/L (42-121) Total Protein 6.5g/dl (6.1-8.1) Albumin 3.3g/dl (3.3-4.9) HELEN CHILD MD May 30, 2017 16:24
== END 2017-05-30 18:15 | disposition home or self-care (01) | DRG 392 ==
LOC: E/R 00:01 → MS2 03:16
PROVIDERS: ADMIT Family Medicine; ATTEND Family Medicine
DX: K52.9 Noninfective gastroenteritis and colitis, unspecified (principal); Z68.43 Body mass index [BMI] 50.0-59.9, adult; D25.9 Leiomyoma of uterus, unspecified; E78.5 Hyperlipidemia, unspecified; E66.01 Morbid (severe) obesity due to excess calories; D64.9 Anemia, unspecified
CPT/HCPCS: 36415; 74176; 74178; 80053; 80061; 80076; 81001; 81003; 82150; 82550; 82553; 82728; 83036; 83540; 83690; 83735; 84443; 84484; 84703; 85014; 85018; 85025; 85610; 85730; 93005; 96374; 96375; 96376; C9113; J1170; J2270; J2405; J7030; Q9967

== ENCOUNTER 2018-10-14 23:39 | Emergency (ER) | payer MEDICAID ==
[~2018-10-14] VITALS: Ht 160 cm; Wt 129.0 kg
[2018-10-14 23:46] VITALS: Ht 160 cm; Wt 129.0 kg
--- NOTE | 2018-10-15 00:21 | ERD ---
ER Documentation Chief Complaint Chief Complaint CAROLINA and neck pain x 3 days with nausea HPI This is a 43-year-old female who presents to emergency department with complaints of headache, neck pain, nausea and vomiting. Stated that her symptoms started 3 days ago. Stated that she has light sensitivity. Also complains of severe dizziness. Denies that her surrounding is moving. Also stated that she never had this headache before. LMP: 2 days ago. . Denies head injury, loss of consciousness, dizziness, neck pain, neck stiffness, throat pain, difficulty swallowing, difficulty breathing lying flat, shoulder pain, chest pain, back pain, abdominal pain, nausea, vomiting, constipation, diarrhea, urinary symptoms, or possibility being , loss of bowel and bladder control, trauma, injury, falls, difficulty walking due to pain, numbness or tingling sensation, calf pain, recent travel, recent major surgery in the last 3 weeks, calf pain, recent long travel, recent exposure to any illness, recent antibiotic use in the last 3 months, fever, chills, seizures. Past medical history: Anemia. Stated that she has a blood transfusion last year. Surgical history: Left breast cyst. Social: Denies smoking, use of alcoholic beverages, use of illegal drugs. ROS All systems reviewed and are negative except as per history of present illness. Medications Home Meds Active Scripts Acetamin/Butalbital/Caffeine* (Fioricet*) [id number] Tab, 1 TAB PO Q6H PRN for PAIN, #20 TAB Prov:PASILABANSUMAN F 10/15/18 Ferrous Sulfate* (Ferrous Sulfate*) 325 Mg Tabec, 325 MG PO DAILY, #30 TAB Prov:PASILABANSUMAN F 10/15/18 Meclizine Hcl* (Antivert*) 12.5 Mg Tab, 12.5 MG PO Q6H PRN for DIZZINESS, #20 TAB Prov:PASILABANNERIAR F 10/15/18 Diphenhydramine Hcl* (Benadryl*) 25 Mg Cap, 25 MG PO Q6 PRN for ITCHING/RASH, #30 TAB Prov:PASILABANNERIAR F 10/15/18 Metoclopramide* (Reglan*) 10 Mg Tablet, 10 MG PO Q6 PRN for NAUSEA AND/OR VOMITING, #20 TAB Prov:PASILABAN,NERIAR F 10/15/18 Cephalexin* (Keflex*) 500 Mg Capsule, 500 MG PO TID for 7 Days, CAP Prov:SUMAN DONAHUE 10/15/18 Allergies Allergies: Coded Allergies: No Known Allergy (Verified , 06/21/16) PMhx/Soc Medical and Surgical Hx: pt denies Medical Hx History of Surgery: Yes (breast cyst removal 1993) Anesthesia Reaction: No Hx Neurological Disorder: No Hx Respiratory Disorders: No Hx Cardiac Disorders: No Hx Psychiatric Problems: No Hx Miscellaneous Medical Probl: No Hx Alcohol Use: No Hx Substance Use: No Hx Tobacco Use: No Smoking Status: Never smoker Physical Exam Vitals Vital Signs Date Temp Pulse Resp B/P (MAP) Pulse Ox O2 O2 Flow FiO2 Time Delivery Rate 10/15/18 98.8 65 18 97/50 (66) 98 Room Air 02:39 10/14/18 98.0 70 20 115/55 100 23:46 (75) Physical Exam Const: No acute distress. Obese. Head: Atraumatic Eyes: Normal Conjunctiva. No visual field loss. There is no pain in eye movement. ENT: Normal External Ears, Nose and Mouth. Bilateral ears: TMs are not erythematous. No bleeding. No discharge. No hearing loss. No mastoid tenderness. Nose: There is frontal and maxillary sinus tenderness to palpation. Throat: Uvula is in midline and nondisplaced. Tonsils are +1 bilaterally without redness without exudates. Tolerating secretions. Patent airway. Speaks full and clear sentences. Neck: Full range of motion. No meningismus. Resp: Clear to auscultation bilaterally Cardio: Regular rate and rhythm, no murmurs Abd: Soft, non tender, non distended. Normal bowel sounds Skin: No petechiae or rashes Back: No midline or flank tenderness Ext: No cyanosis, or edema Neur: Awake and alert. Able to follow commands. No obvious facial droop. Able to control tongue movement. 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 Romberg test negative. Psych: Normal Mood and Affect Result Diagram: 10/15/18 0045 10/15/18 0045 Results 24 hrs Laboratory Tests Test 10/15/18 00:32 10/15/18 00:38 10/15/18 00:45 Urine Color RED Urine Clarity SLIGHTLY CLOUDY Urine pH 6.0 Urine Specific [place] 1.010 Urine Ketones NEGATIVE mg/dL Urine Nitrite NEGATIVE mg/dL Urine Bilirubin NEGATIVE mg/dL Urine Urobilinogen NEGATIVE mg/dL Urine Leukocyte Esterase NEGATIVE Amy/ul Urine Microscopic RBC > 182 /HPF Urine Microscopic WBC 28 /HPF Urine Bacteria FEW /HPF Urine Hemoglobin 3+ mg/dL Urine Glucose NEGATIVE mg/dL Urine Total Protein 2+ mg/dl POC Beta HCG, Qualitative NEGATIVE White Blood Count 5.2 10^3/ul Red Blood Count 3.91 10^6/ul Hemoglobin 9.1 g/dl Hematocrit 30.8 % Mean Corpuscular Volume 78.8 fl Mean Corpuscular Hemoglobin 23.3 pg Mean Corpuscular 29.5 g/dl Hemoglobin Concent Red Cell Distribution Width 18.5 % Platelet Count 317 10^3/UL Mean Platelet Volume 10.5 fl Immature Granulocytes % 0.200 % Neutrophils % 47.3 % Lymphocytes % 35.4 % Monocytes % 9.8 % Eosinophils % 5.4 % Basophils % 1.9 % Nucleated Red Blood Cells % 0.0 /100WBC Immature Granulocytes # 0.010 10^3/ul Neutrophils # 2.5 10^3/ul Lymphocytes # 1.8 10^3/ul Monocytes # 0.5 10^3/ul Eosinophils # 0.3 10^3/ul Basophils # 0.1 10^3/ul Nucleated Red Blood Cells # 0.0 10^3/ul Prothrombin Time 13.3 Sec Prothrombin Time Ratio 1.0 INR International 1.00 Normalized Ratio Activated Partial Thromboplast 34.7 Sec Time Sodium Level 140 mmol/L Potassium Level 4.6 mmol/L Chloride Level 100 mmol/L Carbon Dioxide Level 29 mmol/L Anion Gap 11 Blood Urea Nitrogen 13 mg/dl Creatinine 0.68 mg/dl Est Glomerular Filtrat > 60 mL/min Rate mL/min Glucose Level 104 mg/dl Calcium Level 9.1 mg/dl Total Bilirubin 0.0 mg/dl Direct Bilirubin 0.00 mg/dl Indirect Bilirubin 0.0 mg/dl Aspartate Amino 31 IU/L Transf (AST/SGOT) Alanine 39 IU/L Aminotransferase (ALT/SGPT) Alkaline Phosphatase 78 IU/L Troponin I < 0.012 ng/ml Total Protein 7.2 g/dl Albumin 3.7 g/dl Globulin 3.50 g/dl Albumin/Globulin Ratio 1.05 Current Medications Medications Dose Sig/Calvin Start Time Status Last (Trade) Ordered Route PRN Stop Time Admin Dose Reason Admin Sodium 1,000 ml @ Q1H ONCE 10/15/18 DC 10/15/18 Chloride 1,000 mls/hr IV 00:30 00:56 10/15/18 01:29 10 mg ONCE ONCE 10/15/18 DC 10/15/18 Metoclopramid IV 00:30 00:56 e HCl 10/15/18 00:31 (Reglan) 25 mg ONCE ONCE 10/15/18 DC 10/15/18 Diphenhydrami IV 00:30 00:56 ne HCl 10/15/18 00:31 (Benadryl) Procedures/MDM Diagnostic tests: EKG: Normal sinus rhythm with a ventricular rate of 67 bpm. No STEMI. Read by supervising physician. POC urine : Negative. Urinalysis: Elevated WBC. Influenza a and B: Negative for influenza A. Negative for influenza B. Blood works: Mildly anemic but stable. No need for transfusion. CT of the brain: The intracranial contents are unremarkable and the noncontrast CT scan of the brain. Mild mucosal thickening paranasal sinuses. Treatment: Saline lock. Normal saline IV bolus. Reglan IV. Benadryl IV. Re-evaluation: Denies headache. Patient also complains of urinary frequency. No neurological deficits. Romberg test is negative. Ambulatory with steady gait. Patient and family member stated that they are ready to go home and comfortable to go home. Differential diagnosis I have low suspicion for sepsis, meningitis, mastoiditis, subarachnoid hemorrhage, peritonsillar abscess, stroke, acute microinfarction, severe anemia. Final diagnosis: Anemia. Sinusitis. Headache. Migraine. Possible UTI. Prescription: Keflex. Motrin. Reglan. Antivert. Follow-up with PCP in the next 24-48 hours. Come back here in the emergency department for any new symptoms or any worsening symptoms. All questions and concerns were answered. Patient and family members verbalized understanding and agreed with plan of care. Hemodynamically stable on discharge. Departure Diagnosis: Primary Impression: Headache Additional Impressions: Sinusitis Anemia Condition: Stable Additional Instructions: Follow-up with PCP in the next 24-48 hours. Come back here in the emergency department for any new symptoms or any worsening symptoms. SUMAN DONAHUE Oct 15, 2018 00:21
[2018-10-15] MEDS ORDERED: DIPHENHYDRAMINE 50 MG INJ IV ONE (00:30)
[2018-10-15] MEDS ORDERED: SOD CHLORIDE 0.9% 1,000 ML IV ONE (00:30)
[2018-10-15] MEDS ORDERED: METOCLOPRAMIDE 10 MG INJ IV ONE (00:30)
[2018-10-15] MEDS ORDERED: MECL12.574 PO (01:54)
[2018-10-15] MEDS ORDERED: CEPH-443 PO (01:54)
[2018-10-15] MEDS ORDERED: METO10TA92 PO (01:54)
[2018-10-15] MEDS ORDERED: BEN25 PO (01:54)
[2018-10-15] MEDS ORDERED: FIORICET PO (01:56)
[2018-10-15] MEDS ORDERED: FER325 PO (01:56)
[2018-10-15 02:39] VITALS: BP 97/50; PULSE 65; RESP 18
== END 2018-10-15 03:20 | disposition home or self-care (01) ==
LOC: FTE 23:39
DX: J32.9 Chronic sinusitis, unspecified (principal); D64.9 Anemia, unspecified; R42 Dizziness and giddiness
CPT/HCPCS: 70450; 80053; 81001; 81025; 84484; 85025; 85610; 85730; 87086; 87400; 93005; J1200; J2765; J7030; 96361; 96374; 96375

== ENCOUNTER 2018-12-21 09:48 | Emergency (ER) | payer MEDICAID ==
[~2018-12-21] VITALS: Wt 127.0 kg
[~2018-12-21 09:48] MED LIST changes: +BEN25 PO; -DICY10CA60 PO; -DOCU-144 PO; +FIORICET PO; -HYDR-906 PO; -IBUP-1542 PO; -IBUP400T22 PO; +MECL12.574 PO; -MEDR10TA50 PO; +METO10TA92 PO; -ONDA4TAB14 PO
[2018-12-21 09:53] VITALS: BP 124/59; PULSE 81; RESP 18
[2018-12-21] MEDS ORDERED: FER325 PO (10:50)
[2018-12-21] MEDS ORDERED: DOCU-144 PO (10:50)
--- NOTE | 2018-12-21 12:17 | ERD ---
ER Documentation Chief Complaint Chief Complaint dizziness x 3 days HPI 43-year-old female presenting with dizziness times 3 days. She states it comes and goes and she had no fevers. She took Tylenol this morning. Denies any vomiting but feels mildly nauseous. Has a dry cough. Denies any chest pain or shortness of breath. Has a history of anemia with transfusion in the past. Denies medical problems. NKDA. Surgical history is biopsy on her breast. Social history denies. Current patient is currently not having any vaginal bleeding. 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 ROS All systems reviewed and are negative except as per history of present illness. Medications Home Meds Active Scripts Docusate Sodium* (Colace*) 100 Mg Capsule, 100 MG PO TID, #30 CAP Prov:JONY LUNA PA-C 12/21/18 Ferrous Sulfate* (Ferrous Sulfate*) 325 Mg Tabec, 325 MG PO BID, #60 TAB Prov:JONY LUNA PA-C 12/21/18 Acetamin/Butalbital/Caffeine* (Fioricet*) [id number] Tab, 1 TAB PO Q6H PRN for PAIN, #20 TAB Prov:PASILASUMAN JEFFERSON 10/15/18 Ferrous Sulfate* (Ferrous Sulfate*) 325 Mg Tabec, 325 MG PO DAILY, #30 TAB Prov:PASILASUMAN JEFFERSON F 10/15/18 Meclizine Hcl* (Antivert*) 12.5 Mg Tab, 12.5 MG PO Q6H PRN for DIZZINESS, #20 TAB Prov:PASILASUMAN JEFFERSON F 10/15/18 Diphenhydramine Hcl* (Benadryl*) 25 Mg Cap, 25 MG PO Q6 PRN for ITCHING/RASH, #30 TAB Prov:SUMAN DONAHUE F 10/15/18 Metoclopramide* (Reglan*) 10 Mg Tablet, 10 MG PO Q6 PRN for NAUSEA AND/OR VOMITING, #20 TAB Prov:SUMAN DONAHUE F 10/15/18 Cephalexin* (Keflex*) 500 Mg Capsule, 500 MG PO TID for 7 Days, CAP Prov:PASILABANSUMAN F 10/15/18 Allergies Allergies: Coded Allergies: No Known Allergy (Verified , 06/21/16) PMhx/Soc History of Surgery: Yes (breast cyst removal 1993) Anesthesia Reaction: No Hx Neurological Disorder: No Hx Respiratory Disorders: No Hx Cardiac Disorders: No Hx Psychiatric Problems: No Hx Miscellaneous Medical Probl: No Hx Alcohol Use: No Hx Substance Use: No Hx Tobacco Use: No Smoking Status: Never smoker FmHx Family History: No diabetes, No coronary disease, No other Physical Exam Vitals Vital Signs Date Temp Pulse Resp B/P (MAP) Pulse Ox O2 O2 Flow FiO2 Time Delivery Rate 12/21/18 98.0 81 18 124/59 99 09:53 (80) Physical Exam GENERAL: The patient is well-appearing, well-nourished, in no acute distress HEENT: Atraumatic. Conjunctivae are pink. Pupils equal, round, and reactive to light. There is no scleral icterus. Tympanic membranes clear bilaterally. Oropharynx clear. No nystagmus or photophobia. NECK: C-spine is soft and supple. There is no meningismus. There is no cervical lymphadenopathy. No JVD. No bruits. No goiter. CHEST: Clear to auscultation bilaterally. There are no rales, wheezes or rhonchi. HEART: Regular rate and rhythm. No murmurs, clicks, rubs or gallops. No S3 or S4. ABDOMEN:Soft, nontender and nondistended. Good bowel sounds. No rebound or guarding. No gross peritonitis. No gross organomegaly or masses. Result Diagram: 12/21/18 1031 Results 24 hrs Laboratory Tests Test 12/21/18 10:31 White Blood Count 4.4 10^3/ul Red Blood Count 3.73 10^6/ul Hemoglobin 8.7 g/dl Hematocrit 28.8 % Mean Corpuscular Volume 77.2 fl Mean Corpuscular Hemoglobin 23.3 pg Mean Corpuscular Hemoglobin Concent 30.2 g/dl Red Cell Distribution Width 16.6 % Platelet Count 272 10^3/UL Mean Platelet Volume 10.7 fl Immature Granulocytes % 0.200 % Neutrophils % 60.2 % Lymphocytes % 27.2 % Monocytes % 6.2 % Eosinophils % 4.8 % Basophils % 1.4 % Nucleated Red Blood Cells % 0.0 /100WBC Immature Granulocytes # 0.010 10^3/ul Neutrophils # 2.6 10^3/ul Lymphocytes # 1.2 10^3/ul Monocytes # 0.3 10^3/ul Eosinophils # 0.2 10^3/ul Basophils # 0.1 10^3/ul Nucleated Red Blood Cells # 0.0 10^3/ul Procedures/MDM ER course: Patient CBC is low at 8.3 however she is having no vaginal bleeding. I do not feel patient requires transfusion at this time. Patient will be discharged with iron and Colace. Patient is discharged with strict ER precautions. Patient is recommended to return if symptoms change or worsen. All questions answered at discharge. Departure Diagnosis: Primary Impression: Dizziness Additional Impression: Anemia Condition: Stable Patient Instructions: Anemia, Iron Deficiency (Adult), Dizziness, Unk Cause Referrals: [facility] YOU HAVE RECEIVED A MEDICAL SCREENING EXAM AND THE RESULTS INDICATE THAT YOU DO NOT HAVE A CONDITION THAT REQUIRES URGENT TREATMENT IN THE EMERGENCY DEPARTMENT. FURTHER EVALUATION AND TREATMENT OF YOUR CONDITION CAN WAIT UNTIL YOU ARE SEEN IN YOUR DOCTORS OFFICE WITHIN THE NEXT 1-2 DAYS. IT IS YOUR RESPONSIBILITY TO MAKE AN APPOINTMENT FOR FOLOW-UP CARE. IF YOU HAVE A PRIMARY DOCTOR --you should call your primary doctor and schedule an appointment IF YOU DO NOT HAVE A PRIMARY DOCTOR YOU CAN CALL OUR PHYSICIAN REFERRAL HOTLINE AT IF YOU CAN NOT AFFORD TO SEE A PHYSICIAN YOU CAN CHOSE FROM THE FOLLOWING [facility] [address] [facility] [address] [facility]. [facility] [address] [facility] [address] [facility] [address] [facility]. [facility] [address] Additional Instructions: FOLLOW UP WITH YOUR PRIMARY CARE PHYSICIAN TOMORROW.Return to this facility if you are not improving as expected. JONY LUNA PA-C Dec 21, 2018 12:17
== END 2018-12-21 11:02 | disposition home or self-care (01) ==
LOC: FTE 09:48
DX: D64.9 Anemia, unspecified (principal)
CPT/HCPCS: 36415; 85025; Z7502; 99283

== ENCOUNTER 2019-02-01 10:10 | Emergency (ER) | payer MEDICAID ==
[~2019-02-01] VITALS: Wt 100.0 kg
[~2019-02-01 10:10] MED LIST changes: +DOCU-144 PO
[2019-02-01] MEDS ORDERED: ACET/BUTAL/CAFF TAB PO ONE (11:30)
[2019-02-01] MEDS ORDERED: KETOROLAC 30 MG INJ IV STA (13:18)
[2019-02-01] MEDS ORDERED: SOD CHLORIDE 0.9% 500 ML IV ONE (13:30)
[2019-02-01] MEDS ORDERED: BUTA1CAP38 PO (14:33)
[2019-02-01] MEDS ORDERED: FER325 PO (14:33)
[2019-02-01 14:42] VITALS: BP 120/85; PULSE 88; RESP 20
--- NOTE | 2019-02-01 14:58 | ERD ---
ER Documentation Chief Complaint Chief Complaint CAROLINA X 3 DAYS HPI 43-year-old female patient with no significant past medical history of anemia presents ED complaining of a headache that started 3 days ago. States that she also has some dizziness and feels weak. She has been taking her ferrous sulfate. Denies any chest pain, shortness of breath, nausea, vomiting, diarrhea, neck stiffness, abdominal pain. She is tried taking Tylenol, ibuprofen without any relief. ROS All systems reviewed and are negative except as per history of present illness. Medications Home Meds Active Scripts Zsihtukbgm-Xwjygutbuenet-Rfygiwco* (Fioricet*) 50-300-40 Mg Capsule, 1 CAP PO Q4H PRN for HEADACHE, #20 CAP Prov:KAMLESH YANEZ PA-C 02/01/19 Ferrous Sulfate* (Ferrous Sulfate*) 325 Mg Tabec, 325 MG PO BID, #30 TAB Prov:KAMLESH YANEZ PA-C 02/01/19 Docusate Sodium* (Colace*) 100 Mg Capsule, 100 MG PO TID, #30 CAP Prov:JONY LUNA PA-C 12/21/18 Ferrous Sulfate* (Ferrous Sulfate*) 325 Mg Tabec, 325 MG PO BID, #60 TAB Prov:JONY LUNA PA-C 12/21/18 Acetamin/Butalbital/Caffeine* (Fioricet*) [id number] Tab, 1 TAB PO Q6H PRN for PAIN, #20 TAB Prov:PASILASUMAN JEFFERSON F 10/15/18 Ferrous Sulfate* (Ferrous Sulfate*) 325 Mg Tabec, 325 MG PO DAILY, #30 TAB Prov:PASILASUMAN JEFFERSON F 10/15/18 Meclizine Hcl* (Antivert*) 12.5 Mg Tab, 12.5 MG PO Q6H PRN for DIZZINESS, #20 TAB Prov:PASILASUMAN JEFFERSON F 10/15/18 Diphenhydramine Hcl* (Benadryl*) 25 Mg Cap, 25 MG PO Q6 PRN for ITCHING/RASH, #30 TAB Prov:SUMAN DONAHUE F 10/15/18 Metoclopramide* (Reglan*) 10 Mg Tablet, 10 MG PO Q6 PRN for NAUSEA AND/OR VOMI TING, #20 TAB Prov:PASILABAN,KLAR F 10/15/18 Cephalexin* (Keflex*) 500 Mg Capsule, 500 MG PO TID for 7 Days, CAP Prov:SUAMN DONAHUE 10/15/18 Allergies Allergies: Coded Allergies: No Known Allergy (Verified , 06/21/16) PMhx/Soc History of Surgery: Yes (breast cyst removal 1993) Anesthesia Reaction: No Hx Neurological Disorder: No Hx Respiratory Disorders: No Hx Cardiac Disorders: No Hx Psychiatric Problems: No Hx Miscellaneous Medical Probl: No Hx Alcohol Use: No Hx Substance Use: No Hx Tobacco Use: No Smoking Status: Never smoker FmHx Family History: No diabetes, No coronary disease Physical Exam Vitals Vital Signs Date Temp Pulse Resp B/P (MAP) Pulse Ox O2 O2 Flow FiO2 Time Delivery Rate 02/01/19 97.8 88 20 120/85 99 Room Air 14:42 (97) 02/01/19 98.1 89 18 117/62 99 10:13 (80) Physical Exam Const: [id number], well-nourished. In no acute distress. Head: Atraumatic, normocephalic. No hematoma. No triana sign. Eyes: Normal Conjunctiva without injection. No purulent discharge. PERRLA. EOMI ENT: Normal external ear. Ear canal without erythema. Tympanic membrane pearly lance without effusion or bulging. No Hemotympanum. Nasal canal clear with normal turbinates. Moist oropharynx without tonsillar exudates. Non-erythematous pharynx. Uvula midline. No drooling. No trismus. Neck: No cervical midline tenderness. Full range of motion. No meningismus. No cervical lymphadenopathy. No JVD. Resp: Clear to auscultation bilaterally. No wheezing, rhonchi, rales, or crackles. No accessory muscle use. No retractions. Cardio: Regular rate and rhythm. No murmurs, rubs or gallops. Abd: Soft, non tender, non distended. Normal bowel sounds. No palpable masses. No rebound tenderness. No guarding. Negative McBurney's Point. Negative Valdes's Sign. Skin: Normal skin turgor. No petechiae or rashes Back: No midline tenderness. No CVA tenderness. Ext: No cyanosis, or edema. Distal pulses intact bilaterally. Neur: Awake and alert. Normal gait. Normal coordination. Cranial Nerves II- VII intact. Normal finger to nose. Muscle strength 5/5. Sensation intact. Psych: Normal Mood and Affect Result Diagram: 02/01/19 1140 02/01/19 1140 Results 24 hrs Laboratory Tests Test 02/01/19 11:37 02/01/19 11:40 Urine Color RED Urine Clarity CLOUDY Urine pH 6.0 Urine Specific [place] 1.012 Urine Ketones NEGATIVE mg/dL Urine Nitrite NEGATIVE mg/dL Urine Bilirubin NEGATIVE mg/dL Urine Urobilinogen NEGATIVE mg/dL Urine Leukocyte Esterase TRACE Amy/ul Urine Microscopic RBC > 182 /HPF Urine Microscopic WBC 170 /HPF Urine Squamous Epithelial Cells FEW /HPF Urine Hemoglobin 3+ mg/dL Urine Glucose NEGATIVE mg/dL Urine Total Protein 2+ mg/dl White Blood Count 4.4 10^3/ul Red Blood Count 3.72 10^6/ul Hemoglobin 8.4 g/dl Hematocrit 29.4 % Mean Corpuscular Volume 79.0 fl Mean Corpuscular Hemoglobin 22.6 pg Mean Corpuscular Hemoglobin Concent 28.6 g/dl Red Cell Distribution Width 19.0 % Platelet Count 312 10^3/UL Mean Platelet Volume 9.9 fl Immature Granulocytes % 0.500 % Neutrophils % 57.6 % Lymphocytes % 27.3 % Monocytes % 7.3 % Eosinophils % 5.7 % Basophils % 1.6 % Nucleated Red Blood Cells % 0.0 /100WBC Immature Granulocytes # 0.020 10^3/ul Neutrophils # 2.5 10^3/ul Lymphocytes # 1.2 10^3/ul Monocytes # 0.3 10^3/ul Eosinophils # 0.3 10^3/ul Basophils # 0.1 10^3/ul Nucleated Red Blood Cells # 0.0 10^3/ul Sodium Level 142 mmol/L Potassium Level 4.3 mmol/L Chloride Level 108 mmol/L Carbon Dioxide Level 28 mmol/L Anion Gap 6 Blood Urea Nitrogen 8 mg/dl Creatinine 0.54 mg/dl Est Glomerular Filtrat Rate mL/min > 60 mL/min Glucose Level 100 mg/dl Calcium Level 8.6 mg/dl Total Bilirubin 0.3 mg/dl Direct Bilirubin 0.00 mg/dl Indirect Bilirubin 0.3 mg/dl Aspartate Amino Transf (AST/SGOT) 50 IU/L Alanine Aminotransferase (ALT/SGPT) 42 IU/L Alkaline Phosphatase 73 IU/L Total Protein 6.8 g/dl Albumin 3.6 g/dl Globulin 3.20 g/dl Albumin/Globulin Ratio 1.12 POC Beta HCG, Qualitative NEGATIVE Current Medications Medications Dose Sig/Calvin Start Time Status Last (Trade) Ordered Route PRN Stop Time Admin Dose Reason Admin 1 tab ONCE ONCE 02/01/19 DC 02/01/19 Acetaminophen PO 11:30 11:48 / 02/01/19 11:31 Butalbital/ Caffeine (Fioricet) Ketorolac 30 mg ONCE STAT 02/01/19 DC 02/01/19 Tromethamine IV 13:18 13:55 (Toradol) 02/01/19 13:19 Sodium 500 ml @ Q1H ONCE 02/01/19 DC 02/01/19 Chloride 500 mls/hr IV 13:30 13:55 02/01/19 14:29 Procedures/MDM 43-year-old female patient with a past medical history of anemia presents ED complaining of a headache that started 3 days ago. Patient was further worked up with CBC, CMP, lipase, UA, urine . Patient's pain and symptoms have improved after treatment with Fioricet, 500 mL normal saline, 30 mg IV Toradol. CBC: No leukocytosis. No e/o of systemic infection. Hemoglobin is 8.4. Stable since last visit and patient does not need a transfusion at this time. Patient reports that she is currently menstruation. CMP: No e/o severe acidosis, alkalosis, renal failure, diabetic ketoacidosis, liver disease Lipase within normal limits. Urine: No leukocyte esterase, no nitrites, no hematuria. Urine : Negative Low suspicion for ectopic , ovarian torsion, gastritis, GERD, peptic ulcer disease, cholecystitis, choledocholithiasis, cholangitis, pancreatitis, appendicitis, bowel obstruction, ileus, volvulus, nephrolithiasis, pyelonephritis, hepatitis, perforated viscus, diverticulitis, strangulat ed/incarcerated hernia, DKA, acute abdomen, mesenteric ischemia or other emergent conditions. Patient was noted to have a urinary traction however patient was not given a prescription for Keflex. A call was placed at 4:52 PM on January 23, 20142017 and asked patient to return call to the ED. If provider reading this note, please ask patient what pharmacy she would like her prescription be called in for her urinary tract infection if still having dysuria. Diagnosis: Headache Discharge medications: Ferrous Sulfate, Fioricet Follow up with primary care physician in 1-2 days. Instructed patient to return to the ED sooner for any worsening symptoms. Patient's questions were answered. Patient is hemodynamically stable. Patient understood and agreed with discharge plan. Patient discharged stable. Disclaimer: Inadvertent spelling and grammatical errors are likely due to EHR/dictation software use and do not reflect on the overall quality of patient care. Also, please note that the electronic time recorded on this note does not necessarily reflect the actual time of the patient encounter. Departure Diagnosis: Primary Impression: Headache Headache type: unspecified Headache chronicity pattern: unspecified pattern Intractability: not intractable Qualified Codes: R51 - Headache Condition: Stable Patient Instructions: Anemia, Type Not Specified (Adult), Headache, Unspecified Referrals: [facility] YOU HAVE RECEIVED A MEDICAL SCREENING EXAM AND THE RESULTS INDICATE THAT YOU DO NOT HAVE A CONDITION THAT REQUIRES URGENT TREATMENT IN THE EMERGENCY DEPARTMENT. FURTHER EVALUATION AND TREATMENT OF YOUR CONDITION CAN WAIT UNTIL YOU ARE SEEN IN YOUR DOCTORS OFFICE WITHIN THE NEXT 1-2 DAYS. IT IS YOUR RESPONSIBILITY TO MAKE AN APPOINTMENT FOR FOLOW-UP CARE. IF YOU HAVE A PRIMARY DOCTOR --you should call your primary doctor and schedule an appointment IF YOU DO NOT HAVE A PRIMARY DOCTOR YOU CAN CALL OUR PHYSICIAN REFERRAL HOTLINE AT IF YOU CAN NOT AFFORD TO SEE A PHYSICIAN YOU CAN CHOSE FROM THE FOLLOWING [facility] CLINICS [facility] [address] [facility]. [facility] [address] [facility] [address] [facility]. [facility] [address] [facility]. [facility] [address] [facility]. [facility]. [address] [facility]. [facility] YOU HAVE RECEIVED A MEDICAL SCREENING EXAM AND THE RESULTS INDICATE THAT YOU DO NOT HAVE A CONDITION THAT REQUIRES URGENT TREATMENT IN THE EMERGENCY DEPARTMENT. FURTHER EVALUATION AND TREATMENT OF YOUR CONDITION CAN WAIT UNTIL YOU ARE SEEN IN YOUR DOCTORS OFFICE WITHIN THE NEXT 1-2 DAYS. IT IS YOUR RESPONSIBILITY TO MAKE AN APPOINTMENT FOR FOLOW-UP CARE. IF YOU HAVE A PRIMARY DOCTOR --you should call your primary doctor and schedule and appointment IF YOU DO NOT HAVE A PRIMARY DOCTOR YOU CAN CALL OUR PHYSICIAN REFERRAL HOTLINE AT . IF YOU CAN NOT AFFORD TO SEE A PHYSICIAN YOU CAN CHOSE FROM THE FOLLOWING [facility] INSTITUTIONS: [facility] [address] [place] [address] [facility] [address] [place], [place] [id number] [place] [address] [address] [place] [address] [facility]ENT [facility]SPECIALTIES Additional Instructions: Llame al doctor MAANA y charan guillermo ULYSSES PARA DENTRO DE 2-3 GONZALEZ.Dgale a la secretaria que nosotros le instruimos hacer esta ulysses.Avise o llame si jordan condicin se empeora antes de la ulysses. Regresa aqui si peor o no mejor. KAMLESH YANEZ PA-C February 01, 2019 14:58
== END 2019-02-01 14:43 | disposition home or self-care (01) ==
LOC: FTE 10:10
DX: R51 Headache (principal)
CPT/HCPCS: 80053; 81001; 81025; 85025; 87086; J1885; J7040; Z7610; 96374

== ENCOUNTER 2019-02-23 23:40 | Emergency (ER) | payer MEDICAID ==
[~2019-02-23] VITALS: Ht 162.6 cm; Wt 110.0 kg
[~2019-02-23 23:40] MED LIST changes: +BUTA1CAP38 PO
[2019-02-23 23:48] VITALS: Ht 162.6 cm; Wt 110.0 kg
[2019-02-24] MEDS ORDERED: SOD CHLORIDE 0.9% 500 ML IV STA (03:15)
[2019-02-24] MEDS ORDERED: ONDANSETRON 4 MG INJ IV STA (03:15)
[2019-02-24] MEDS ORDERED: LORAZEPAM 2 MG INJ IV ONE (05:00)
[2019-02-24] MEDS ORDERED: ONDA4TAB14 PO (05:08)
[2019-02-24] MEDS ORDERED: MEDR10TA9 PO (05:17)
--- NOTE | 2019-02-24 05:17 | ERD ---
ER Documentation Chief Complaint Chief Complaint [place], nausea, neck pain; back pain; cp after taking doxycycline this AM HPI This is a 43-year-old female doxycycline nausea vomiting abdominal cramps. Patient has a history of allergy to tetracycline she did not the medication was related. She denies any fevers or chills. She is complaining body aches are mild to moderate intensity. Denies any other current complaints. ROS All systems reviewed and are negative except as per history of present illness. Medications Home Meds Active Scripts Ondansetron (Ondansetron Odt) 4 Mg Tab.rapdis, 4 MG PO Q6H PRN for NAUSEA AND/OR VOMITING, #10 TAB Prov:KEVYN BOLTON 02/24/19 Iknvvnkbiw-Zkeeldqeprqmi-Loovwumd* (Fioricet*) 50-300-40 Mg Capsule, 1 CAP PO Q4 H PRN for HEADACHE, #20 CAP Prov:KAMLESH YANEZ PA-C 02/01/19 Ferrous Sulfate* (Ferrous Sulfate*) 325 Mg Tabec, 325 MG PO BID, #30 TAB Prov:KAMLESH YANEZ PA-C 02/01/19 Docusate Sodium* (Colace*) 100 Mg Capsule, 100 MG PO TID, #30 CAP Prov:JONY LUNA PA-C 12/21/18 Ferrous Sulfate* (Ferrous Sulfate*) 325 Mg Tabec, 325 MG PO BID, #60 TAB Prov:JONY LUNA PA-C 12/21/18 Acetamin/Butalbital/Caffeine* (Fioricet*) [id number] Tab, 1 TAB PO Q6H PRN for PAIN, #20 TAB Prov:SUMAN DONAHUE F 10/15/18 Ferrous Sulfate* (Ferrous Sulfate*) 325 Mg Tabec, 325 MG PO DAILY, #30 TAB Prov:SUMAN DONAHUE F 10/15/18 Meclizine Hcl* (Antivert*) 12.5 Mg Tab, 12.5 MG PO Q6H PRN for DIZZINESS, #20 TAB Prov:NERI DONAHUEAR F 10/15/18 Diphenhydramine Hcl* (Benadryl*) 25 Mg Cap, 25 MG PO Q6 PRN for ITCHING/RASH, #30 TAB Prov:SUMAN DONAHUE 10/15/18 Metoclopramide* (Reglan*) 10 Mg Tablet, 10 MG PO Q6 PRN for NAUSEA AND/OR VOMITING, #20 TAB Prov:SUMAN DONAHUE 10/15/18 Cephalexin* (Keflex*) 500 Mg Capsule, 500 MG PO TID for 7 Days, CAP Prov:SUMAN DONAHUE 10/15/18 Allergies Allergies: Coded Allergies: tetracycline (Verified Allergy, Unknown, 02/24/19) PMhx/Soc History of Surgery: Yes (breast cyst removal 1993) Anesthesia Reaction: No Hx Neurological Disorder: No Hx Respiratory Disorders: No Hx Cardiac Disorders: No Hx Psychiatric Problems: No Hx Miscellaneous Medical Probl: No Hx Alcohol Use: No Hx Substance Use: No Hx Tobacco Use: No Smoking Status: Never smoker Physical Exam Vitals Vital Signs Date Temp Pulse Resp B/P (MAP) Pulse Ox O2 O2 Flow FiO2 Time Delivery Rate 02/24/19 76 18 124/60 100 Room Air 04:45 (81) 02/23/19 99.9 72 20 112/56 98 23:48 (74) Physical Exam Const: No acute distress Head: Atraumatic Eyes: Normal Conjunctiva ENT: Normal External Ears, Nose and Mouth. Neck: Full range of motion. No meningismus. Resp: Clear to auscultation bilaterally Cardio: Regular rate and rhythm, no murmurs Abd: Soft, non tender, non distended. Normal bowel sounds Skin: No petechiae or rashes Back: No midline or flank tenderness Ext: No cyanosis, or edema Neur: Awake and alert Psych: Normal Mood and Affect Result Diagram: 02/24/19 0306 02/24/19 0322 Results 24 hrs Laboratory Tests Test 02/24/19 03:06 02/24/19 03:22 White Blood Count 7.0 10^3/ul Red Blood Count 3.86 10^6/ul Hemoglobin 8.8 g/dl Hematocrit 30.0 % Mean Corpuscular Volume 77.7 fl Mean Corpuscular Hemoglobin 22.8 pg Mean Corpuscular Hemoglobin Concent 29.3 g/dl Red Cell Distribution Width 19.9 % Platelet Count 313 10^3/UL Mean Platelet Volume 10.5 fl Immature Granulocytes % 0.300 % Neutrophils % 61.0 % Lymphocytes % 28.2 % Monocytes % 6.5 % Eosinophils % 2.4 % Basophils % 1.6 % Nucleated Red Blood Cells % 0.0 /100WBC Immature Granulocytes # 0.020 10^3/ul Neutrophils # 4.3 10^3/ul Lymphocytes # 2.0 10^3/ul Monocytes # 0.5 10^3/ul Eosinophils # 0.2 10^3/ul Basophils # 0.1 10^3/ul Nucleated Red Blood Cells # 0.0 10^3/ul Urine Color YELLOW Urine Clarity CLOUDY Urine pH 6.0 Urine Specific Parker 1.020 Urine Ketones NEGATIVE mg/dL Urine Nitrite NEGATIVE mg/dL Urine Bilirubin NEGATIVE mg/dL Urine Urobilinogen NEGATIVE mg/dL Urine Leukocyte Esterase NEGATIVE Amy/ul Urine Microscopic RBC > 182 /HPF Urine Microscopic WBC 0 /HPF Urine Squamous Epithelial Cells MODERATE /HPF Urine Bacteria FEW /HPF Urine Hemoglobin 3+ mg/dL Urine Glucose NEGATIVE mg/dL Urine Total Protein 1+ mg/dl Sodium Level 139 mmol/L Potassium Level 4.1 mmol/L Chloride Level 104 mmol/L Carbon Dioxide Level 27 mmol/L Anion Gap 8 Blood Urea Nitrogen 19 mg/dl Creatinine 0.73 mg/dl Est Glomerular Filtrat Rate mL/min > 60 mL/min Glucose Level 115 mg/dl Calcium Level 9.0 mg/dl Total Bilirubin 0.3 mg/dl Direct Bilirubin 0.00 mg/dl Indirect Bilirubin 0.3 mg/dl Aspartate Amino Transf (AST/SGOT) 23 IU/L Alanine Aminotransferase (ALT/SGPT) 29 IU/L Alkaline Phosphatase 78 IU/L Total Protein 7.3 g/dl Albumin 3.9 g/dl Globulin 3.40 g/dl Albumin/Globulin Ratio 1.14 Lipase 214 U/L Current Medications Medications Dose Sig/Calvin Start Time Status Last (Trade) Ordered Route PRN Stop Time Admin Dose Reason Admin Sodium 500 ml @ Q1H STAT 02/24/19 DC 02/24/19 Chloride 500 mls/hr IV 03:15 02/24/19 03:29 04:14 Ondansetron 4 mg ONCE STAT 02/24/19 DC 02/24/19 HCl (Zofran IV 03:15 02/24/19 03:29 Inj) 03:17 Lorazepam 1 mg ONCE ONCE 02/24/19 DC 02/24/19 (Ativan) IV 05:00 02/24/19 04:46 05:01 Procedures/MDM Medical decision making: Patient with essentially an allergic reaction to the GI tract known medication elevation. At this point clinically stable. Feeling much better. Patient be discharged home. Departure Diagnosis: Primary Impression: Multiple complaints Condition: Stable Patient Instructions: Allergic Reaction, Drug KEVYN BOLTON Feb 24, 2019 05:17
[2019-02-24 08:30] VITALS: BP 110/65; PULSE 74; RESP 20
== END 2019-02-24 08:33 | disposition home or self-care (01) ==
LOC: E/R 23:40
DX: R11.2 Nausea with vomiting, unspecified (principal); R07.9 Chest pain, unspecified
CPT/HCPCS: 36415; 80053; 81001; 83690; 85025; 93005; 96374; 96375; J2060; J2405; J7040; Z7502

== ENCOUNTER 2019-07-13 13:19 | Emergency (ER) | payer MEDICAID ==
[~2019-07-13] VITALS: Ht 162.6 cm; Wt 135.9 kg
[~2019-07-13 13:19] MED LIST changes: -BEN25 PO; -BUTA1CAP38 PO; -CEPH-443 PO; -DOCU-144 PO; +EXCED PO; -FER325 PO; -FIORICET PO; -MECL12.574 PO; +MEDR10TA9 PO; -METO10TA92 PO; +ONDA4TAB14 PO
[2019-07-13 13:23] VITALS: Ht 162.6 cm; Wt 135.9 kg
[2019-07-13] MEDS ORDERED: KETOROLAC 15 MG INJ IV STA (14:09)
[2019-07-13] MEDS ORDERED: PROCHLORPERAZINE 10 MG INJ IV STA (14:09)
[2019-07-13] MEDS ORDERED: SOD CHLORIDE 0.9% 1,000 ML IV STA (14:09)
[2019-07-13] MEDS ORDERED: DIPHENHYDRAMINE 50 MG INJ IV STA (14:09)
[2019-07-13 17:19] VITALS: BP 110/52; PULSE 64; RESP 18
== END 2019-07-13 17:27 | disposition home or self-care (01) ==
LOC: FTE 13:19
DX: D64.9 Anemia, unspecified (principal)
CPT/HCPCS: 36415; 80053; 81001; 81025; 83690; 85025; 96374; 96375; J0780; J1200; J1885; J7030; Z7502; 81003